=== PATIENT | female | born 1965 | race African-American/Black ===

== ENCOUNTER 2016-07-11 15:10 | Observation (INO) | payer BC, OTHER ==
[2016-07-11] MEDS ORDERED: ASPIRIN 81 MG CHEW PO STA (15:21)
--- NOTE | 2016-07-11 15:25 | ED ---
General Adult HPI - General Chief complaint: Shortness of Breath Stated complaint: SOB Time Seen by Provider: 07/11/16 15:16 Source: patient, RN notes reviewed Mode of arrival: ambulatory Limitations: no limitations - History of Present Illness Initial comments: Patient 50-year-old female significant past medical history for hyperlipidemia, who presents emergency room today with chief complaint of increased shortness of breath. Patient does admit that symptoms started 4 days ago. She states that she thought was for acid reflux that she has had some burning sensation in her chest. She states that she tried Prilosec with no relief the symptoms. She does admit that symptoms are worse when she is up moving around. She states she feels that she has taken extra deep breath. Patient states relatively comfortable sitting down. Patient denies any other complaints or associated symptoms. Patient denies any recent fever, chills, back pain, abdominal pain, nausea or vomiting, numbness or tingling, dysuria or hematuria, constipation or diarrhea, headaches or visual changes, or any other complaints. - Related Data Home Medications Medication Instructions Recorded Confirmed Ibuprofen [Motrin] 800 mg PO Q8HR PRN 10/24/13 07/11/16 Rosuvastatin Calcium [Crestor] 10 mg PO DAILY 10/24/13 07/11/16 Allergies Allergy/AdvReac Type Severity Reaction Status Date / Time tramadol Allergy Itching Verified 07/11/16 15:25 Review of Systems ROS Statement: Those systems with pertinent positive or pertinent negative responses have been documented in the HPI. ROS Other: All systems not noted in ROS Statement are negative. Past Medical History Past Medical History: GERD/Reflux, Hyperlipidemia Additional Past Medical History / Comment(s): knee pain History of Any Multi-Drug Resistant Organisms: None Reported Past Surgical History: Orthopedic Surgery, Tubal Ligation Past Psychological History: No Psychological Hx Reported Smoking Status: Former smoker Past Alcohol Use History: Occasional Past Drug Use History: None Reported General Exam - General Exam Comments Initial Comments: General: The patient is awake and alert, in no distress, and does not appear acutely ill. Eye: Pupils are equal, round and reactive to light, extra-ocular movements are intact. No nystagmus. There is normal conjunctiva bilaterally. No signs of icterus. Ears, nose, mouth and throat: There are moist mucous membranes and no oral lesions. Neck: The neck is supple, there is no tenderness or JVD. Cardiovascular: There is a regular rate and rhythm. No murmur, rub or gallop is appreciated. Respiratory: Lungs are clear to auscultation, respirations are non-labored, breath sounds are equal. No wheezes, stridor, rales, or rhonchi. Gastrointestinal: Soft, non-distended, non-tender abdomen without masses or organomegaly noted. There is no rebound or guarding present. No CVA tenderness. Bowel sounds are unremarkable. Musculoskeletal: Normal ROM, no tenderness. Strength 5/5. Sensation intact. Pulses equal bilaterally 2+. Neurological: A&O x 3. CN II-XII intact, There are no obvious motor or sensory deficits. Coordination appears grossly intact. Speech is normal. Skin: Skin is warm and dry and no rashes or lesions are noted. Psychiatric: Cooperative, appropriate mood & affect, normal judgment. Limitations: no limitations Course Vital Signs 07/11/16 07/11/16 07/11/16 15:11 15:20 16:45 Temperature 98.6 F Pulse Rate 90 84 Respiratory 20 20 20 Rate Blood Pressure 145/86 139/75 O2 Sat by Pulse 98 98 Oximetry EKG Findings - EKG Comments: EKG Findings:: EKG performed at 1537: A 12-lead EKG was performed and interpreted by me as showing the following: Rate is 84, and rhythm is normal sinus. There are normal QRS complexes and normal R-wave progression. ST segments have no elevation or depression, and VA segments appear normal. Medical Decision Making - Medical Decision Making Patient reexamined at this time shows no signs of distress. Patient's labs been reviewed and are unremarkable. Patient's EKG shows normal sinus rhythm. Patient was given sublingual nitroglycerin which she states did improve her symptoms. She states any type of burning type chest pain has resolved. She no longer feeling short of breath. Patient will be admitted for serial enzymes. - Lab Data Result diagrams: 07/11/16 15:35 07/11/16 15:35 Lab Results 07/11/16 07/11/16 07/11/16 Range/Units 15:35 15:35 15:35 WBC 7.1 (3.8-10.6) k/uL RBC 4.66 (3.80-5.40) m/uL Hgb 13.0 (11.4-16.0) gm/dL Hct 41.0 (34.0-46.0) % MCV 87.9 (80.0-100.0) fL MCH 27.9 (25.0-35.0) pg MCHC 31.8 (31.0-37.0) g/dL RDW 13.7 (11.5-15.5) % Plt Count 337 (150-450) k/uL Neutrophils % 61 % Lymphocytes % 31 % Monocytes % 3 % Eosinophils % 2 % Basophils % 1 % Neutrophils # 4.3 (1.3-7.7) k/uL Lymphocytes # 2.2 (1.0-4.8) k/uL Monocytes # 0.2 (0-1.0) k/uL Eosinophils # 0.2 (0-0.7) k/uL Basophils # 0.1 (0-0.2) k/uL PT (9.0-12.0) sec INR (<1.1) APTT (22.0-30.0) sec D-Dimer (<0.60) mg/L FEU Sodium 142 (137-145) mmol/L Potassium 4.2 (3.5-5.1) mmol/L Chloride 107 (98-107) mmol/L Carbon Dioxide 26 (22-30) mmol/L Anion Gap 9 mmol/L BUN 17 (7-17) mg/dL Creatinine 0.65 (0.52-1.04) mg/dL Est GFR (MDRD) Af Amer >60 (>60 ml/min/1.73 sqM) Est GFR (MDRD) Non-Af >60 (>60 ml/min/1.73 sqM) Glucose 116 H (74-99) mg/dL Calcium 9.4 (8.4-10.2) mg/dL Magnesium 2.2 (1.6-2.3) mg/dL Total Bilirubin 0.5 (0.2-1.3) mg/dL AST 35 (14-36) U/L ALT 25 (9-52) U/L Alkaline Phosphatase 149 H (38-126) U/L Total Creatine Kinase 96 (30-135) U/L CK-MB (CK-2) 0.9 (0.0-2.4) ng/mL CK-MB (CK-2) Rel Index 0.9 Troponin I <0.012 (0.000-0.034) ng/mL Total Protein 8.2 (6.3-8.2) g/dL Albumin 4.2 (3.5-5.0) g/dL 07/11/16 Range/Units 15:35 WBC (3.8-10.6) k/uL RBC (3.80-5.40) m/uL Hgb (11.4-16.0) gm/dL Hct (34.0-46.0) % MCV (80.0-100.0) fL MCH (25.0-35.0) pg MCHC (31.0-37.0) g/dL RDW (11.5-15.5) % Plt Count (150-450) k/uL Neutrophils % % Lymphocytes % % Monocytes % % Eosinophils % % Basophils % % Neutrophils # (1.3-7.7) k/uL Lymphocytes # (1.0-4.8) k/uL Monocytes # (0-1.0) k/uL Eosinophils # (0-0.7) k/uL Basophils # (0-0.2) k/uL PT 10.4 (9.0-12.0) sec INR 1.0 (<1.1) APTT 27.8 (22.0-30.0) sec D-Dimer 0.25 (<0.60) mg/L FEU Sodium (137-145) mmol/L Potassium (3.5-5.1) mmol/L Chloride (98-107) mmol/L Carbon Dioxide (22-30) mmol/L Anion Gap mmol/L BUN (7-17) mg/dL Creatinine (0.52-1.04) mg/dL Est GFR (MDRD) Af Amer (>60 ml/min/1.73 sqM) Est GFR (MDRD) Non-Af (>60 ml/min/1.73 sqM) Glucose (74-99) mg/dL Calcium (8.4-10.2) mg/dL Magnesium (1.6-2.3) mg/dL Total Bilirubin (0.2-1.3) mg/dL AST (14-36) U/L ALT (9-52) U/L Alkaline Phosphatase (38-126) U/L Total Creatine Kinase (30-135) U/L CK-MB (CK-2) (0.0-2.4) ng/mL CK-MB (CK-2) Rel Index Troponin I (0.000-0.034) ng/mL Total Protein (6.3-8.2) g/dL Albumin (3.5-5.0) g/dL Disposition Clinical Impression: Atypical chest pain Disposition: ADMITTED IP TO THIS [facility] Condition: Stable Time of Disposition: 17:10
[2016-07-11 15:47] LABS: Basophils # (A) 0.1 k/uL (0-0.2); Basophils % (A) 1 %; Eosinophils # (A) 0.2 k/uL (0-0.7); Eosinophils % (A) 2 %; HDW 2.43; Luc # (Auto) 0.12; Luc % (Auto) 2; Lymphocytes # (A) 2.2 k/uL (1.0-4.8); Lymphocytes % (A) 31 %; MCH 27.9 pg (25.0-35.0); MCHC 31.8 g/dL (31.0-37.0); MCV 87.9 fL (80.0-100.0); Mean Platelet Volume 6.4; Monocytes # (A) 0.2 k/uL (0-1.0); Monocytes % (A) 3 %; Neutrophils # (A) 4.3 k/uL (1.3-7.7); Neutrophils % (A) 61 %; RBC 4.66 m/uL (3.80-5.40); RDW 13.7 % (11.5-15.5); WBC 7.1 k/uL (3.8-10.6); WBC (Perox) 6.81
--- NOTE | 2016-07-11 16:02 | XR ---
EXAMINATION TYPE: XR chest 2V DATE OF EXAM: 07/11/2016 3:48 PM COMPARISON: 02/13/2012 images without report. HISTORY: Chest pain and shortness of breath. TECHNIQUE: Frontal and lateral views of the chest are obtained. FINDINGS: There is no focal air space opacity, pleural effusion, or pneumothorax seen. The cardiac silhouette size is within normal limits. The osseous structures are intact. IMPRESSION: No acute cardiopulmonary process.
[2016-07-11 16:05] LABS: ALT 25 U/L (9-52); AST 35 U/L (14-36); Alkaline Phosphatase 149 U/L (38-126); Anion Gap 9 mmol/L; Blood Urea Nitrogen 17 mg/dL (7-17); Calcium 9.4 mg/dL (8.4-10.2); Carbon Dioxide 26 mmol/L (22-30); Chloride 107 mmol/L (98-107); Glucose 116 mg/dL (74-99); Magnesium 2.2 mg/dL (1.6-2.3); Non-African American GFR(MDRD) >60 (>60 ml/min/1.73 sqM); Sodium 142 mmol/L (137-145); Total Bilirubin 0.5 mg/dL (0.2-1.3); Total Protein 8.2 g/dL (6.3-8.2)
[2016-07-11 16:08] LABS: Creatine Kinase 96 U/L (30-135)
[2016-07-11 16:10] LABS: Potassium 4.2 mmol/L (3.5-5.1)
[2016-07-11 16:21] LABS: Creatine Kinase MB 0.9 ng/mL (0.0-2.4); Troponin I <0.012 ng/mL (0.000-0.034)
[2016-07-11] MEDS ORDERED: NITROGLYCERIN SL TABS 0.4 MG TAB SUBLINGUAL STA (16:27)
[2016-07-11 16:30] LABS: Partial Thromboplastin Time 27.8 sec (22.0-30.0); Prothrombin Time 10.4 sec (9.0-12.0)
[2016-07-11] MEDS ORDERED: NITROGLYCERIN SL TABS 0.4 MG TAB SUBLINGUAL PRN (17:10)
[2016-07-11] MEDS ORDERED: SODIUM CHLORIDE 0.9% 1,000 ML IV ONE (17:10)
[2016-07-11] MEDS ORDERED: HEPARIN SODIUM,PORCINE 5,000 UNIT/ML 1 ML VIAL IV ONE (17:10)
[2016-07-11] MEDS ORDERED: HEPARIN SODIUM,PORCINE/D5W PMX 25,000 UNIT in DEXTROSE/WATER 1 500ML.BAG IV SCH (17:15)
[2016-07-11] MEDS ORDERED: TEMAZEPAM 15 MG CAP PO PRN (18:47)
[2016-07-11] MEDS ORDERED: ALPRAZolam 0.25 MG TAB PO PRN (18:47)
[2016-07-11] MEDS ORDERED: RX INFO: IV CONTRAST WAS GIVEN 1 EACH MISC MISCELLANE PRN (18:47)
--- NOTE | 2016-07-11 19:09 | HP ---
DATE OF ADMISSION: 07/11/2016 CHIEF COMPLAINT: Shortness of breath and chest discomfort. This 50-year-old woman with a past medical history of multiple medical problems including GERD, hyperlipidemia, DJD, history of tubal ligation, being followed by Dr. Melednez in the outpatient setting, was not feeling well for the last 4 days. Patient has minimal shortness of breath on exertion. Subsequently, the patient had burning sensation, chest discomfort in the anterior part of the chest. The patient has taken some antacids and Prilosec without any relief and the patient came to [facility] and admitted to the hospital for further evaluation and treatment. The troponins are negative. EKG showed no acute abnormality. Patient admitted to the hospital for further evaluation and treatment. D. dimer also negative. Past medical history: 1. History of gastroesophageal reflux disease. 2. Hyperlipidemia. 3. History of knee pain. 4. Degenerative joint disease. 5. History of tubal ligation. Medications prior to admission include: 1. Crestor 10 mg daily. 2. Motrin 800 mg q8h p.r.n. ALLERGIES: ULTRAM. FAMILY HISTORY: History of blood clots in the family. SOCIAL HISTORY: Previous history of smoking. No history of current smoking. No alcohol intake. REVIEW OF SYSTEMS: ENT: No diminishing hearing. Diminished vision. CARDIOVASCULAR: No angina. Otherwise as mentioned earlier. RESPIRATORY: No cough or hemoptysis. GI: No nausea. : No dysuria. Nervous system: No numbness or weakness. ALLERGY/IMMUNOLOGY: No asthma or hayfever. MUSCULOSKELETAL: As mentioned earlier. HEMATOLOGY/ONCOLOGY: No history of anemia. ENDOCRINE: No history of diabetes or hypothyroidism. CONSTITUTIONAL: As mentioned earlier. DERMATOLOGY: Negative. RHEUMATOLOGY: Negative. PSYCHIATRY: As mentioned earlier. PHYSICAL EXAMINATION: The patient is alert and oriented times three. Pulse 84, blood pressure 120/70, respiratory rate 18, temperature 98 degrees. HEENT: Conjunctivae normal. Oral mucosa moist. NECK: No jugular venous distention. No carotid bruit. No lymph node enlargement. CARDIOVASCULAR: S1, S2 muffled. RESPIRATORY: Breath sounds diminished at the bases. No rhonchi, no crackles. ABDOMEN: Soft, nontender. No mass palpable. Legs: No edema. No swelling. CENTRAL NERVOUS SYSTEM: Higher functions as mentioned earlier. Moves all 4 limbs. No focal deficits. LYMPHATICS: No lymph nodes palpable in the neck, axillae or groin. SKIN: No ulcer, rash or bleeding. Labs at this time shows CBC within normal limits. Otherwise, glucose 116. ASSESSMENT: 1. Shortness of breath and chest pain for evaluation rule out pulmonary embolism. 2. Rule out gastroesophageal reflux disease and coronary artery disease. 3. Increased random blood sugar. 4. Increased alkaline phosphatase. 5. Hyperlipidemia. 6. History of gastroesophageal reflux disease. 7. History of nicotine dependence. RECOMMENDATIONS AND DISCUSSION: In this 50-year-old woman who presented with multiple complex medical issues, we will monitor the patient closely. Continue the current medications. Continue symptomatic treatment. I would also recommend CT angio to rule out pulmonary embolism. Otherwise see orders for further details. Dr. Melendez will follow. Overall prognosis guarded. The patient appears to be stable at this time. MTDD
[2016-07-11 19:44] VITALS: RESP 16
--- NOTE | 2016-07-11 20:37 | CT ---
EXAMINATION TYPE: CT angio chest DATE OF EXAM: 07/11/2016 8:19 PM COMPARISON: NONE HISTORY: Pt states of SOB and abnormal EKG. CT DLP: 329.4 mGycm Automated exposure control for dose reduction was used. CONTRAST: CTA scan of the thorax is performed with IV Contrast, patient injected with 90 mL of Omnipaque 350, p ulmonary embolism protocol. MIP images are created and reviewed. 3D reconstructed images are create d on an independent workstation and reviewed. FINDINGS: LUNGS: The lungs are remarkable for some minimal dependent atelectatic change, there is no concerning parenchymal mass or nodule identified. There is no pleural effusion or pneumothorax seen. The tra cheobronchial tree is patent. AORTA: No additional significant abnormality is seen. The heart is enlarged. MEDIASTINUM: There is borderline enhancement of the pulmonary artery and its branches, there is no CT evidence for pulmonary embolism. There are no greater than 1 cm hilar or mediastinal lymph nodes. No pericardial effusion is seen. OTHER: No additional significant abnormality is seen. IMPRESSION: NO PULMONARY EMBOLISM IS EVIDENT, SEGMENTAL BRANCHES WITH SOMEWHAT LIMITED CONTRAST ENHANCEMENT [facility] ER.
[2016-07-11] MEDS: PANTOPRAZOLE 40 MG/10 ML VIAL IVP SCH (21:15)
[2016-07-11] MEDS: ACETAMINOPHEN TAB 325 MG TAB PO PRN (21:40)
[2016-07-11 22:18] LABS: Creatine Kinase 81 U/L (30-135)
[2016-07-11 22:31] LABS: Creatine Kinase MB 0.7 ng/mL (0.0-2.4); Troponin I <0.012 ng/mL (0.000-0.034)
[2016-07-12 04:34] LABS: Basophils % (A) 0 %; CH 27.8; Eosinophils # (A) 0.1 k/uL (0-0.7); Eosinophils % (A) 2 %; HCT 38.9 % (34.0-46.0); HDW 2.54; HGB 12.6 gm/dL (11.4-16.0); Luc # (Auto) 0.14; Luc % (Auto) 2; Lymphocytes # (A) 2.7 k/uL (1.0-4.8); Lymphocytes % (A) 44 %; MCH 28.4 pg (25.0-35.0); MCHC 32.4 g/dL (31.0-37.0); MCV 87.6 fL (80.0-100.0); Mean Platelet Volume 7.1; Monocytes # (A) 0.2 k/uL (0-1.0); Monocytes % (A) 4 %; Neutrophils # (A) 2.9 k/uL (1.3-7.7); Neutrophils % (A) 47 %; RBC 4.44 m/uL (3.80-5.40); RDW 13.7 % (11.5-15.5); WBC 6.1 k/uL (3.8-10.6); WBC (Perox) 6.55
[2016-07-12 05:04] LABS: Creatine Kinase 69 U/L (30-135)
[2016-07-12 05:11] LABS: Anion Gap 9 mmol/L; Blood Urea Nitrogen 18 mg/dL (7-17); Carbon Dioxide 22 mmol/L (22-30); Chloride 109 mmol/L (98-107); Cholesterol 182 mg/dL (<200); Glucose 94 mg/dL (74-99); HDL Cholesterol 57 mg/dL (40-60); Non-African American GFR(MDRD) >60 (>60 ml/min/1.73 sqM); Potassium 4.1 mmol/L (3.5-5.1); Sodium 140 mmol/L (137-145); Triglycerides 140 mg/dL (<150)
[2016-07-12 05:16] LABS: Creatine Kinase MB 0.7 ng/mL (0.0-2.4); Troponin I <0.012 ng/mL (0.000-0.034)
--- NOTE | 2016-07-12 08:14 | P.HPIM ---
History of Present Illness H&P Date: 07/12/16 Chief Complaint: chest pressure and shortness of breath. This is a history of physical on a 50-year-old black female, who is a nonsmoker , who has no significant family history other than a grandmother on her mother' s side who had possible myocardial infarction. She does not know her father's medical history. However she is a nonsmoker but stated at work, where she works as a local [employer] employee, she was lifting packages and became noticeably dyspneic area she states this was unusual for her but she was able to "work through it." The symptoms continued over the weekend with exertion only. No supposedly rest pressure or pain. No significant nausea or radiation of any type of chest pressure. She did complain of right hand pain. She is nonsmoker. She denies any significant illicit ethanol or substance abuse. After evaluation, she was up admitted for appropriate evaluation. Review of Systems Constitutional: Denies chills, Denies fever Eyes: denies blurred vision, denies pain Ears, nose, mouth and throat: Denies headache, Denies sore throat Cardiovascular: Reports dyspnea on exertion Respiratory: Denies cough Gastrointestinal: Denies abdominal pain, Denies diarrhea, Denies nausea, Denies vomiting Genitourinary: Denies dysuria, Denies hematuria Musculoskeletal: Denies myalgias Neurological: Denies numbness, Denies weakness Past Medical History Past Medical History: GERD/Reflux, Hyperlipidemia Additional Past Medical History / Comment(s): knee pain History of Any Multi-Drug Resistant Organisms: None Reported Past Surgical History: Orthopedic Surgery, Tubal Ligation Additional Past Surgical History / Comment(s): 2 right knee surgeries. uterine ablation Past Anesthesia/Blood Transfusion Reactions: Previous Problems w/ Anesthesia Additional Past Anesthesia/Blood Transfusion Reaction / Comment(s): "my body tries rejecting the tube. I needed a wedge" Past Psychological History: No Psychological Hx Reported Smoking Status: Former smoker Past Alcohol Use History: Occasional Past Drug Use History: None Reported - Past Family History Father History Unknown: Yes Mother Family Medical History: Dementia, Deep Vein Thrombosis (DVT), Hypertension Brother(s) Family Medical History: COPD, Diabetes Mellitus, Hypertension Sister(s) Family Medical History: No Reported History Medications and Allergies Home Medications Medication Instructions Recorded Confirmed Type Ibuprofen [Motrin] 800 mg PO Q8HR PRN 08/06/14 04/23/17 History Rosuvastatin Calcium [Crestor] 10 mg PO DAILY 10/24/13 07/11/16 History Allergies Allergy/AdvReac Type Severity Reaction Status Date / Time tramadol Allergy Itching Verified 07/11/16 15:25 Physical Exam Vitals: Vital Signs Temp Pulse Pulse Resp BP BP Pulse Ox 07/12/16 04:00 97 F L 70 16 119/71 95 07/12/16 00:00 97 F L 75 16 122/60 96 07/11/16 19:34 98.6 F 73 16 134/82 98 07/11/16 17:59 98.2 F 07/11/16 17:44 84 18 128/78 98 Intake and Output 07/11/16 07/12/16 07/12/16 22:59 06:59 14:59 Intake Total 200 264 120 Balance 200 264 120 Intake: IV 120 120 Sodium Chloride 0.9% 1, 120 120 000 ml @ 20 mls/hr IV . Q24H [facility] Rx#:[id number] Intake, IV Titration 144 Amount Heparin Sodium,Porcine/ 144 D5w Pmx 25,000 unit In Dextrose/Water 1 500ml. bag @ 11.604 UNITS/KG/HR 20 mls/hr IV .Q24H [facility] Rx #:[id number] Oral 200 Other: Voiding Method Toilet Toilet # Voids 1 Weight 84.2 kg - Constitutional General appearance: no acute distress - EENT Eyes: EOMI - Neck Neck: no lymphadenopathy - Respiratory Respiratory: bilateral: CTA - Cardiovascular Rhythm: regular Heart sounds: normal: S1, S2 - Gastrointestinal General gastrointestinal: soft, no tenderness, no umbilical hernia - Neurologic Neurologic: CNII-XII intact Results CBC & Chem 7: 07/12/16 03:46 07/12/16 03:46 Labs: Abnormal Lab Results - Last 24 Hours (Table) 07/11/16 07/12/16 Range/Units 22:59 03:46 APTT 104.9 H* (22.0-30.0) sec Chloride 109 H (98-107) mmol/L BUN 18 H (7-17) mg/dL Thrombosis Risk Factor Assmnt - Choose All That Apply Any of the Below Risk Factors Present?: Yes Each Factor Represents 1 point: Age 41-60 years Each Risk Factor Represents 3 Points: Family history of DVT/PE Thrombosis Risk Factor Assessment Total Risk Factor Score: 4 Thrombosis Risk Factor Assessment Level: Moderate Risk Assessment and Plan (1) Lipidemia Status: Acute (2) Atypical chest pain Status: Acute Plan: go ahead and rule out myocardial infarction. Given her symptom otology and no previous cardiac history, we'll most likely stress testing will be done today. Otherwise, await cardiology input. Reconcile home medications. We'll continue to follow. I discussed the patient, she is agreeable to treatment. She is a full code otherwise. Time with Patient: Less than 30
[2016-07-12] MEDS: PANTOPRAZOLE 40 MG/10 ML VIAL IVP SCH (08:18)
[2016-07-12] MEDS: ACETAMINOPHEN TAB 325 MG TAB PO PRN ×2 (08:21→17:07)
[2016-07-12 08:28] VITALS: PULSE 76
[2016-07-12] MEDS ORDERED: ATORVASTATIN 20 MG TAB PO SCH (09:00)
[2016-07-12] MEDS ORDERED: ASPIRIN 325 MG TAB PO SCH (09:00)
--- NOTE | 2016-07-12 09:11 | P.CRDCN ---
History of Present Illness Consult date: 07/12/16 Requesting physician: Dann Melendez Consult reason: chest pain Chief complaint: Exertional shortness of breath History of present illness: This is a pleasant 50-year-old -Wallis[place] female with history of hyperlipidemia, family history of premature coronary artery disease, who presents to the hospital with symptoms of exertional dyspnea. According to the patient for the past week or so she has noticed that she becomes short of breath with minimal exertion. Patient states she works as a [employer] employee, and even lifting small boxes she becomes quite short of breath. She denies any chest pains. She states that yesterday she went shopping with her , just walking through the store became quite short of breath, for this reason she came to the emergency room for further evaluation. Chest x-ray on admission did not reveal any acute cardiopulmonary process. EKG showed normal sinus rhythm with inferior ST-T wave changes. Repeat EKG shows normal sinus rhythm with inferior T-wave inversion. The chest was performed which did not reveal any evidence of a pulmonary embolism. CBC normal. D-dimer negative. Potassium 4.1, creatinine 0.6. Troponins negative 3. At pressure 134/80 with a heart rate in 70's. At the time of my examination this morning, patient denies any shortness of breath, no chest discomfort. Past Medical History Past Medical History: GERD/Reflux, Hyperlipidemia Additional Past Medical History / Comment(s): knee pain History of Any Multi-Drug Resistant Organisms: None Reported Past Surgical History: Orthopedic Surgery, Tubal Ligation Additional Past Surgical History / Comment(s): 2 right knee surgeries. uterine ablation Past Anesthesia/Blood Transfusion Reactions: Previous Problems w/ Anesthesia Additional Past Anesthesia/Blood Transfusion Reaction / Comment(s): "my body tries rejecting the tube. I needed a wedge" Past Psychological History: No Psychological Hx Reported Smoking Status: Former smoker Past Alcohol Use History: Occasional Past Drug Use History: None Reported - Past Family History Father History Unknown: Yes Mother Family Medical History: Dementia, Deep Vein Thrombosis (DVT), Hypertension Brother(s) Family Medical History: COPD, Diabetes Mellitus, Hypertension Sister(s) Family Medical History: No Reported History Medications and Allergies Home Medications Medication Instructions Recorded Confirmed Type Ibuprofen [Motrin] 800 mg PO Q8HR PRN 08/06/14 04/23/17 History Rosuvastatin Calcium [Crestor] 10 mg PO DAILY 10/24/13 07/11/16 History Allergies Allergy/AdvReac Type Severity Reaction Status Date / Time tramadol Allergy Itching Verified 07/11/16 15:25 Physical Exam Vitals: Vital Signs Temp Pulse Pulse Resp BP BP Pulse Ox 07/12/16 08:26 97.7 F 76 16 134/80 97 07/12/16 04:00 97 F L 70 16 119/71 95 07/12/16 00:00 97 F L 75 16 122/60 96 07/11/16 19:34 98.6 F 73 16 134/82 98 07/11/16 17:59 98.2 F 07/11/16 17:44 84 18 128/78 98 Intake and Output 07/11/16 07/12/16 07/12/16 22:59 06:59 14:59 Intake Total 200 264 120 Balance 200 264 120 Intake: IV 120 120 Sodium Chloride 0.9% 1, 120 120 000 ml @ 20 mls/hr IV . Q24H ONE Rx#:[id number] Intake, IV Titration 144 Amount Heparin Sodium,Porcine/ 144 D5w Pmx 25,000 unit In Dextrose/Water 1 500ml. bag @ 11.604 UNITS/KG/HR 20 mls/hr IV .Q24H [facility] Rx #:[id number] Oral 200 Other: Voiding Method Toilet Toilet Toilet # Voids 1 Weight 84.2 kg PHYSICAL EXAMINATION: HEENT: Head is atraumatic, normocephalic. Pupils equal, round. Neck is supple. There is no elevated jugular venous pressure. Right carotid bruit is heard HEART EXAMINATION: Heart S1, S2 normal. No murmur or gallop heard. CHEST EXAMINATION: Lungs are clear to auscultation and precussion. No chest wall tenderness is noted on palpation or with deep breathing. ABDOMEN: Soft, nontender. Bowel sounds are heard. No organomegaly noted. EXTREMITIES: 2+ peripheral pulses with no evidence of peripheral edema and no calf tenderness noted. NEUROLOGIC patient is awake, alert and oriented -3. . Results 07/12/16 03:46 07/12/16 03:46 Cardiac Enzymes 07/11/16 07/12/16 Range/Units 21:11 03:46 CK-MB (CK-2) 0.7 0.7 (0.0-2.4) ng/mL Troponin I <0.012 <0.012 (0.000-0.034) ng/mL Coagulation 07/11/16 Range/Units 22:59 APTT 104.9 H* (22.0-30.0) sec Lipids 07/12/16 Range/Units 03:46 Triglycerides 140 (<150) mg/dL Cholesterol 182 (<200) mg/dL HDL Cholesterol 57 (40-60) mg/dL CBC 07/12/16 Range/Units 03:46 WBC 6.1 (3.8-10.6) k/uL RBC 4.44 (3.80-5.40) m/uL Hgb 12.6 (11.4-16.0) gm/dL Hct 38.9 (34.0-46.0) % Plt Count 317 (150-450) k/uL Comprehensive Metabolic Panel 07/12/16 Range/Units 03:46 Sodium 140 (137-145) mmol/L Potassium 4.1 (3.5-5.1) mmol/L Chloride 109 H (98-107) mmol/L Carbon Dioxide 22 (22-30) mmol/L BUN 18 H (7-17) mg/dL Creatinine 0.60 (0.52-1.04) mg/dL Glucose 94 (74-99) mg/dL Calcium 9.0 (8.4-10.2) mg/dL Current Medications Generic Name Dose Route Start Last Admin Trade Name Freq PRN Reason Stop Dose Admin Acetaminophen 650 mg 07/11/16 21:20 07/12/16 08:21 Tylenol Tab PO 650 mg Q4HR PRN Administration Fever and/ or Pain Alprazolam 0.25 mg 07/11/16 18:47 Xanax PO TID PRN Anxiety Aspirin 325 mg 07/12/16 09:00 Aspirin PO DAILY [facility] Atorvastatin Calcium 20 mg 07/12/16 09:00 Lipitor PO DAILY [facility] Heparin Sodium/Dextrose 25,000 500 mls @ 20 mls/hr 07/11/16 17:15 07/12/16 01 :45 unit/ IV Solution IV 8.604 units/kg/hr .Q24H [facility] 14.83 mls/hr Protocol Titration 11.604 UNITS/KG/HR Sodium Chloride 1,000 mls @ 20 mls/hr 07/11/16 17:10 07/11/16 17:30 Saline 0.9% IV 07/12/16 17:09 20 mls/hr .Q24H ONE Administration Miscellaneous Information 1 each 07/11/16 18:47 Rx Info: Iv Contrast Was Given MISCELLANE 07/13/16 18:47 DAILY PRN Per Protocol Nitroglycerin 0.4 mg 07/11/16 17:10 Nitrostat SUBLINGUAL Q5M PRN Chest Pain Pantoprazole Sodium 40 mg 07/11/16 21:00 07/12/16 08:18 Protonix IVP 40 mg BID SHRUTHI Administration Temazepam 15 mg 07/11/16 18:47 Restoril PO HS PRN Insomnia Intake and Output 07/11/16 07/12/16 07/12/16 22:59 06:59 14:59 Intake Total 200 264 120 Balance 200 264 120 Intake: IV 120 120 Sodium Chloride 0.9% 1, 120 120 000 ml @ 20 mls/hr IV . Q24H [facility] Rx#:[id number] Intake, IV Titration 144 Amount Heparin Sodium,Porcine/ 144 D5w Pmx 25,000 unit In Dextrose/Water 1 500ml. bag @ 11.604 UNITS/KG/HR 20 mls/hr IV .Q24H [facility] Rx #:[id number] Oral 200 Other: Voiding Method Toilet Toilet Toilet # Voids 1 Weight 84.2 kg 07/12/16 03:46 07/12/16 03:46 EKG Interpretations (text) EKG shows normal sinus rhythm with nonspecific ST-T wave changes in the lateral leads. Assessment and Plan Plan: Assessment and plan #1 symptoms of exertional dyspnea, troponins negative 3. EKG shows normal sinus rhythm with nonspecific ST-T wave changes in the lateral leads. ET of the chest negative for pulmonary embolism. #2 hyperlipidemia #3 family history of premature coronary artery disease Plan We will obtain an echocardiogram with Doppler study.Patient has been advised to undergo stress testing for more definitive diagnosis. Further recommendations will be based on these findings and the patient's clinical course. DNP note has been reviewed, I agree with a documented findings and plan of care. Patient was seen and examined.
[2016-07-12] MEDS ORDERED: AMINOPHYLLINE 500 MG/20 ML VIAL IV PRN (10:30)
[2016-07-12] MEDS ORDERED: REGADENOSON 0.4 MG/5 ML SYRINGE IV ONE (10:30)
[2016-07-12] MEDS ORDERED: ONDANSETRON 4 MG/2 ML VIAL ONE (11:57)
--- NOTE | 2016-07-12 12:08 | ECHOF ---
Referral Reason:sob MEASUREMENTS -------- HEIGHT: 165.1 cm WEIGHT: 83.9 kg BP: 134/80 RVIDd: 2.3 cm (< 3.3) IVSd: 1.0 cm (0.6 - 1.1) LVIDd: 3.8 cm (3.9 - 5.3) LVPWd: 0.9 cm (0.6 - 1.1) IVSs: 1.3 cm LVIDs: 2.8 cm LVPWs: 1.4 cm LA Diam: 2.6 cm (2.7 - 3.8) LAESV Index (A-L): 25.28 ml/m Ao Diam: 2.7 cm (2.0 - 3.7) AV Cusp: 1.9 cm (1.5 - 2.6) LA Diam: 2.5 cm (2.7 - 3.8) MV EXCURSION: 12.451 mm (> 18.000) MV EF SLOPE: 93 mm/s (70 - 150) EPSS: 0.5 cm MV E Milton: 0.68 m/s MV DecT: 258 ms MV A Milton: 0.68 m/s MV E/A Ratio: 1.00 RAP: 5.00 mmHg RVSP: 18.51 mmHg FINDINGS -------- Sinus rhythm. This was a technically good study. Left ventricular wall thickness is normal. Overall left ventricular systolic function is normal with, an EF between 55 - 60 %. The right ventricle is normal in size. Normal LA size by volume 22+/-6 ml/m2. The right atrium is normal in size. Aortic valve is trileaflet and is mildly thickened. The mitral valve leaflets are mildly thickened. Mild mitral annular calcification present. Mild mitral regurgitation is present. Mild tricuspid regurgitation present. Right ventricular systolic pressure is normal at < 35 mmHg. Trace/mild (physiologic) pulmonic regurgitation. The aortic root size is normal. Normal inferior vena cava with normal inspiratory collapse consistent with estimated right atrial pressure of 5 mmHg. There is no pericardial effusion. CONCLUSIONS -------- 1. Sinus rhythm. 2. Mild mitral annular calcification present. 3. Mild mitral regurgitation is present. 4. Mild tricuspid regurgitation present. 5. Right ventricular systolic pressure is normal at < 35 mmHg. 6. Trace/mild (physiologic) pulmonic regurgitation. 7. The aortic root size is normal. 8. Normal inferior vena cava with normal inspiratory collapse consistent with estimated right atrial pressure of 5 mmHg. 9. There is no pericardial effusion. 10. This was a technically good study. 11. Left ventricular wall thickness is normal. 12. Overall left ventricular systolic function is normal with, an EF between 55 - 60 %. 13. The right ventricle is normal in size. 14. Normal LA size by volume 22+/-6 ml/m2. 15. The right atrium is normal in size. 16. Aortic valve is trileaflet and is mildly thickened. 17. The mitral valve leaflets are mildly thickened. [employer]AL[employer] ASSURANCE SUPERVISOR TRIM: Marlin Rodgers RDCS
--- NOTE | 2016-07-12 12:26 | EST ---
DATE OF SERVICE: 07/12/2016 AGE: 50Y SEX: F HT: 65" WT: 185 lbs. Protocol Brian: Other: Stage: Dur. of Exercise: *Heart Rate Blood Pressure *Rest: 66 Rest: 123/92 * *Max. Achieved: 115 Maximum BP: 153/94 85% PMHR: 143 100% PMHR: 165 *METS: INDICATIONS: Chest pain. MEDICATIONS: See list. This is a 50-year-old female. Clinical information: History of shortness of breath, chest pain, family history of coronary artery disease, hypercholesterolemia, history of smoking 1 pack of cigarettes a day, quit 25 years ago. Resting ECG shows sinus rhythm, rate of 66 beats per minute, ( ) 0.16, QRS of 0.08, normal ST-T waves. Utilizing a standard Lexiscan protocol, Lexiscan was given IV push followed by serial EKGs without any chest pain or pressure. Patient had nausea and required Zofran with improvement of nausea. Patient did not have any ST segment deviations or symptoms suggestive of angina. IMPRESSION: 1. Baseline rhythm is sinus with normal QRS and normal ST-T waves. 2. Negative Lexiscan Cardiolite study. 3. Nuclear scintigrams to follow from radiology department.
--- NOTE | 2016-07-12 15:19 | NM ---
EXAMINATION TYPE: NM stress lexiscan cardiolite DATE OF EXAM: 07/12/2016 12:48 PM COMPARISON: NONE HISTORY: TECHNIQUE: After the intravenous administration of 10.4 mCi Tc 99m Sestamibi - Cardiolite resting SP ECT images acquired 45 minutes post injection. The patient received 0.4mg Lexiscan, 26.3 mCi Tc 99m Sestamibi - Stress images obtained [address] injection FINDINGS: Review of stress and rest SPECT images demonstrates predominantly fixed defect involving the apex monica cardium. No definite stress-induced reversibility identified.. Gated analysis shows normal wall oscar on with an estimated left ventricular ejection fraction of 53 %. IMPRESSION: No scintigraphic evidence for reversible ischemia. Correlate for fixed defect apex myocardium and pre vious infarction. Ejection fraction 53%.
[2016-07-12 15:24] VITALS: BP 146/66; TEMP 97.6
--- NOTE | 2016-08-25 10:37 | P.DS ---
Providers Date of admission: 07/11/16 17:28 Attending physician: Dann Melendez Consults: 07/11/16 17:10 Consult Physician Stat Consulting Provider: [facility] Consult Reason/Comments: Chest pain Do you want consulting provider notified?: Yes Primary care physician: Dann Melendez - Discharge Diagnosis(es) (1) Lipidemia Status: Acute (2) Atypical chest pain Status: Acute Hospital Course: This is a discharge summary on a 51-year-old black female essentially admitted for chest pain. She has significant shortness of breath and symptomatology for angina. The patient was admitted and appropriately evaluated with significant stress testing. The patient was discharged after normality of this test. The patient was stable condition with some mild cough. But she is tolerant diet and ambulate without difficulty and will follow-up with me in approximately 3 days. Patient Condition at Discharge: Stable Plan - Discharge Summary New Discharge Prescriptions: No Action Rosuvastatin Calcium [Crestor] 10 mg PO DAILY Ibuprofen [Motrin] 800 mg PO Q8HR PRN PRN Reason: Pain Discharge Medication List Ibuprofen [Motrin] 800 mg PO Q8HR PRN 10/24/13 [History] Rosuvastatin Calcium [Crestor] 10 mg PO DAILY 10/24/13 [History] Follow up Appointment(s)/Referral(s): Dann Melendez MD [Primary Care Provider] - 07/19/16 2:00 pm Austen Vera MD [STAFF PHYSICIAN] - 1 Week (office will call with appt) Patient Instructions/Handouts: Chest Pain (DC) Discharge Disposition: HOME SELF-CARE
== END 2016-07-12 17:54 | disposition home or self-care (01) ==
LOC: EC 15:10 → 6SEL 17:28
PROVIDERS: ADMIT Family Medicine; ATTEND Family Medicine
DX: R07.89 Other chest pain (principal); K21.9 Gastro-esophageal reflux disease without esophagitis; E78.5 Hyperlipidemia, unspecified; R06.02 Shortness of breath; Z79.899 Other long term (current) drug therapy; Z88.6 Allergy status to analgesic agent; Z87.891 Personal history of nicotine dependence; Z82.49 Family history of ischemic heart disease and other diseases of the circulatory system; Z83.3 Family history of diabetes mellitus; Z82.0 Family history of epilepsy and other diseases of the nervous system
CPT/HCPCS: 99285 ×2; 96365 ×2; 96375 ×2; 96376 ×2; 36415; 93005; 93017; 93306; 85379; 80061; 80053; 80048; 82550 ×2; 82553 ×2; 83735; 84484 ×2; 85025 ×2; 85610; 85730 ×2; 71020; 71275; 78452; G0378 ×2; A9500; J1644 ×2; Q9967; J2785; C9113 ×2; 96366

== ENCOUNTER → 2016-08-25 | Outpatient (CLI) | payer BC, OTHER | END | disposition home or self-care (01) | LOC: CPPFTMAIN 13:22 | PROVIDERS: ATTEND Internal Medicine Cardiovascular Disease | DX: R06.02 Shortness of breath (principal) | CPT/HCPCS: 94060; 94726; 94729 ==

== ENCOUNTER 2017-04-21 10:22 | Day surgery (SDC) | payer BC ==
[2017-04-19 08:50] VITALS: BMI 30.9
[~2017-04-21 10:22] MED LIST: LACTATED RINGERS 1,000 ML IV SCH; LIDOCAINE 1% 20 ML VIAL (10MG/ML) FOR IV START INTRADERMA PRN
[2017-04-21] MEDS ORDERED: PROPOFOL 10 MG/ML 20 ML VIAL IV ONE (11:36)
--- NOTE | 2017-04-21 11:44 | P.PCN ---
Date of Procedure: 04/21/17 Procedure(s) Performed: BRIEF HISTORY: Patient is a 51-year-old, pleasant, after intermittent female, scheduled for an upper endoscopy as a part of evaluation of epigastric pain for the last several weeks duration. She takes NSAIDs on a regular basis. She was recently started on the Dexillant once daily and symptoms and the symptoms are gradually improving.. PROCEDURE PERFORMED: Esophagogastroduodenoscopy with biopsy.. PREOPERATIVE DIAGNOSIS: Epigastric pain. IV sedation per anesthesia. PROCEDURE: After informed consent was obtained, the patient was brought into the endoscopy unit. IV sedation was administered by Anesthesia under continuous monitoring. Initially the Olympus GIF-140 video endoscope was inserted into the mouth. Esophagus intubated without any difficulty. It was gradually advanced into the stomach and duodenum and carefully examined. The bulb and the second part of the duodenum appeared normal. The scope at this time was withdrawn to the stomach, adequately insufflated with air, and upon careful examination, mucosa of the antrum, had multiple scattered erosions consistent with erosive gastritis and biopsies were done from this area. The body, cardia and the fundus appeared normal. The scope was then withdrawn into the esophagus. The GE junction was located at 39 cm from the incisors. The esophagus appeared normal. There were no erosions or ulcerations seen and the patient tolerated the procedure well. IMPRESSION: 1. Antral erosive gastritis. 2. No evidence of esophagitis or peptic ulcer disease. RECOMMENDATIONS: The findings of this examination were discussed with the patient as well as a family. She was advised to follow with the biopsy results. She will continue with dexillant once daily and follow antireflux measures. She was advised to avoid NSAIDs.
[2017-04-21 12:14] VITALS: BP 127/75; PULSE 67; RESP 16
== END 2017-04-21 12:40 | disposition home or self-care (01) ==
LOC: ORWHC2ENDO 10:22
PROVIDERS: ATTEND Internal Medicine Gastroenterology
DX: K29.50 Unspecified chronic gastritis without bleeding (principal); K21.9 Gastro-esophageal reflux disease without esophagitis; E78.5 Hyperlipidemia, unspecified; Z88.5 Allergy status to narcotic agent; Z79.1 Long term (current) use of non-steroidal anti-inflammatories (NSAID); Z79.899 Other long term (current) drug therapy
CPT/HCPCS: 43239; 81025; 88305; 88342

== ENCOUNTER 2017-07-24 14:50 | Emergency (ER) | payer BC ==
[2017-07-24 14:53] VITALS: BP 158/91; PULSE 100; RESP 20; TEMP 99
[2017-07-24] MEDS ORDERED: KETOROLAC 30 MG/ML 1 ML VIAL IM STA (15:15)
--- NOTE | 2017-07-24 15:44 | XR ---
EXAMINATION TYPE: XR lumbar spine 2 or 3V DATE OF EXAM: 07/24/2017 COMPARISON: 01/13/2014 HISTORY: Pain TECHNIQUE: 3 view lumbar spine FINDINGS: There 5 lumbar-type vertebral bodies. The pedicles are intact. Disc heights are preserved. Vertebral body heights are preserved. Alignment is normal. IMPRESSION: 1. Normal three-view lumbar spine.
--- NOTE | 2017-07-24 16:00 | ED ---
General Adult HPI - General Chief complaint: Back Pain/Injury Stated complaint: Back Pain Time Seen by Provider: 07/24/17 14:58 Source: patient, RN notes reviewed Mode of arrival: ambulatory Limitations: no limitations - History of Present Illness Initial comments: 52-year-old female presents to the emergency department for a chief complaint of low back pain 5 days. Patient states she has had similar low back pain in the past. Patient denies any injuries. Patient works for [employer] and [employer] boxes often and may have injured herself doing that but cannot remember an exact time. Patient complaints of pain mostly in the left lower lumbar area. Patient denies any shooting or radiating pains. Patient denies bladder or bowel changes including urinary retention and bowel incontinence. Patient denies any numb or groin area. Patient denies any weakness in her legs or arms. Patient denies any pain in her neck or upper back. Patient states she has been taking Tylenol and cannot take Motrin because she has had stomach problems with it. She denies any kidney diseases. Patient states she has been taking Tylenol which helps somewhat. She does not want any narcotics for pain. Patient denies any other complaints at this time. Patient denies fevers, shortness of breath, chest pain, abdominal pain, nausea or vomiting, headaches, or visual changes. - Related Data Home Medications Medication Instructions Recorded Confirmed Ibuprofen [Motrin] 800 mg PO Q8HR PRN 10/24/13 04/21/17 Rosuvastatin Calcium [Crestor] 10 mg PO DAILY 10/24/13 04/21/17 Buckleys Cough Syrup 1 dose PO DAILY PRN 04/19/17 04/21/17 Dexlansoprazole [Dexilant] 60 mg PO Q2D 04/19/17 04/21/17 Previous Rx's Medication Instructions Recorded Acetaminophen [Tylenol] 500 mg PO Q4-6H PRN #20 tab 07/24/17 Cyclobenzaprine [Flexeril] 5 mg PO TID #12 tablet 07/24/17 predniSONE 50 mg PO DAILY #5 tablet 07/24/17 Allergies Allergy/AdvReac Type Severity Reaction Status Date / Time tramadol Allergy Itching Verified 07/24/17 14:53 Review of Systems ROS Statement: Those systems with pertinent positive or pertinent negative responses have been documented in the HPI. ROS Other: All systems not noted in ROS Statement are negative. Past Medical History Past Medical History: GERD/Reflux, Hyperlipidemia Additional Past Medical History / Comment(s): knee pain History of Any Multi-Drug Resistant Organisms: None Reported Past Surgical History: Orthopedic Surgery, Tubal Ligation Additional Past Surgical History / Comment(s): 2 right knee surgeries. uterine ablation Past Anesthesia/Blood Transfusion Reactions: Previous Problems w/ Anesthesia Additional Past Anesthesia/Blood Transfusion Reaction / Comment(s): "my body tries rejecting the tube. I needed a wedge","takes awhile to come out of anesthesia for one of my surgeries so I ended up staying the night" Past Psychological History: No Psychological Hx Reported Smoking Status: Former smoker Past Alcohol Use History: Occasional Past Drug Use History: None Reported - Past Family History Father History Unknown: Yes Mother Family Medical History: Dementia, Deep Vein Thrombosis (DVT), Hypertension Brother(s) Family Medical History: COPD, Diabetes Mellitus, Hypertension Sister(s) Family Medical History: No Reported History General Exam Limitations: no limitations General appearance: alert, in no apparent distress Head exam: Present: atraumatic, normocephalic, normal inspection Neck exam: Present: normal inspection, full ROM. Absent: tenderness, meningismus, lymphadenopathy Respiratory exam: Present: normal lung sounds bilaterally. Absent: respiratory distress, wheezes, rales, rhonchi, stridor Cardiovascular Exam: Present: regular rate, normal rhythm, normal heart sounds. Absent: bradycardia, tachycardia, irregular rhythm Extremities exam: Present: full ROM (Full range of motion in bilateral lower extremities. Strength 5 out of 5 in bilateral lower extremities. Pedal pulse 2 + in bilateral lower extremities.) Back exam: Absent: full ROM (Patient has 45 of lumbar flexion. Full and bilateral rotation of the), tenderness (No tenderness to palpation along the spine.), paraspinal tenderness (No paraspinal tenderness), vertebral tenderness (No palpation of the cervical thoracic or lumbar spines.) Neurological exam: Present: alert, oriented X3 Course Vital Signs 07/24/17 14:51 Temperature 99.0 F Pulse Rate 100 Respiratory 20 Rate Blood Pressure 158/91 O2 Sat by Pulse 98 Oximetry Medical Decision Making - Medical Decision Making 52-year-old female presents to the emergency department for a chief complaint of low back pain 5 days. No injuries. No red flag symptoms. Patient has been taking Tylenol for pain relief which has helped somewhat. On exam patient has limited flexion but full range of motion otherwise of the lumbar spine. No tenderness through the lumbar thoracic or cervical spines. X-ray of the lumbar spine shows no acute fractures or abnormalities. No lytic or blastic bony change. No spondylolysis or spondylolisthesis. Patient was given Toradol in the emergency department which alleviated her pain. Patient is feeling much better. Patient does not want narcotics. She will be given Tylenol for pain relief as well as a steroid and Flexeril. Patient was educated not to drive while taking Flexeril. She will return to the emergency Department if she has any worsening symptoms including urinary or bowel changes. She will follow up with family doctor in one to 2 days. Disposition Clinical Impression: Mechanical back pain Disposition: HOME SELF-CARE Condition: Good Instructions: Acute Low Back Pain (ED) Prescriptions: Acetaminophen [Tylenol] 500 mg PO Q4-6H PRN #20 tab PRN Reason: Pain Cyclobenzaprine [Flexeril] 5 mg PO TID #12 tablet predniSONE 50 mg PO DAILY #5 tablet Is patient prescribed a controlled substance at d/c from ED?: No Referrals: Dann Melendez MD [Primary Care Provider] - 1-2 days Time of Disposition: 15:49
== END 2017-07-24 16:03 | disposition home or self-care (01) ==
LOC: EC 14:50
DX: M54.5 Low back pain (principal); E78.5 Hyperlipidemia, unspecified; K21.9 Gastro-esophageal reflux disease without esophagitis; Z87.891 Personal history of nicotine dependence; Z79.899 Other long term (current) drug therapy; Z88.6 Allergy status to analgesic agent
CPT/HCPCS: 99283; 96372; 72100; J1885

== ENCOUNTER → 2017-08-10 | Outpatient (CLI) | payer BC ==
--- NOTE | 2017-08-10 15:51 | BD ---
EXAMINATION TYPE: Axial Bone Density DATE OF EXAM: 08/10/2017 COMPARISON: NONE CLINICAL HISTORY: Z78.0 Postmenopausal w/o HR Height: 65 Weight: 193.0 FRAX RISK QUESTIONS: Alcohol (3 or more units per day): no Family History (Parent hip fracture): no Glucocorticoids (More than 3mos): no (Ex: prednisone, prednisolone, methylprednisolone, dexamethasone, and hydrocortisone). History of Fracture in Adulthood: yes Secondary Osteoporosis: 1. Type 1 Diabetes: no 2. Hyperthyroidism: no 3. Menopause before 45: no 4. Malnutrition: no 5. Chronic liver disease: no Rheumatoid Arthritis: no Current Tobacco Use: no RISK FACTORS HISTORY OF: Family History of Osteoporosis: no Active: yes Diet low in dairy products/other sources of calcium: yes Postmenopausal woman: ablation age 44 Lost more than 2 inches in height since high school: no MEDICATIONS: crestor, prilosec Additional History: EXAM MEASUREMENTS: Bone mineral densitometry was performed using the [employer]eb System. Bone mineral density as measured about the Lumbar spine is: ----- L1-L4(G/cm2): 1.107 T Score Values are as follows: ----- L2: -1.0 ----- L3: -0.3 ----- L4: -1.0 ----- L1-L4: -0.6 Bone mineral density has: decreased -8.0 % since study of: 03.02.2011 Bone mineral density about the R hip (g/cm2): 0.984 Bone mineral density about the L hip (g/cm2): 0.942 T Score values are as follows: -----R Neck: -0.4 -----L Neck: -0.7 -----R Total: 0.2 -----L Total: 0.0 Bone mineral density has: decreased -3.7 % since study of: 03.02.2011 IMPRESSION: No evidence for osteoporosis or osteopenia. NOTE: T-SCORE=SD OF THE YOUNG ADULT MEAN.
--- NOTE | 2017-08-11 09:36 | MM ---
Reason for exam: screening (asymptomatic). Last mammogram was performed 6 years and 5 months ago. History: Family history of premenopausal breast cancer in 2 aunts at age 40. Cancelled Left US Needle Biopsy of the left breast, January 18, 2007. Physical Findings: A clinical breast exam by your physician is recommended on an annual basis and results should be correlated with mammographic findings. MG Screening Mammo w CAD Bilateral CC and MLO view(s) were taken. Prior study comparison: March 02, 2011, bilateral digital screening mammo w/CAD. December 31, 2009, bilateral diagnostic digital mammog. There are scattered fibroglandular densities. No suspicious abnormality. No significant changes when compared with prior studies. ASSESSMENT: Negative, BI-RAD 1 RECOMMENDATION: Routine screening mammogram of both breasts in 1 year.
== END | disposition home or self-care (01) ==
LOC: RADMAMWWP 14:33
PROVIDERS: ATTEND Family Medicine
DX: Z12.31 Encounter for screening mammogram for malignant neoplasm of breast (principal); Z78.0 Asymptomatic menopausal state
CPT/HCPCS: 77067; 77080

== ENCOUNTER → 2018-03-31 | Outpatient (CLI) | payer BC ==
--- NOTE | 2018-03-31 10:59 | XR ---
Lumbar spine HISTORY: Sciatic pain, low back pain 3 views of the lumbar spine correlated to prior exam 07/24/2017 Lumbar vertebral bodies show preserved height, alignment, and bone mineralization. Loss of disc heigh t again noted L4-5, L5-S1. Sclerosis present in the posterior elements of the lower lumbar spine. Mil d multilevel spondylosis. IMPRESSION: Degenerative disc disease.
== END | disposition home or self-care (01) ==
LOC: RADXRMAIN 09:31
PROVIDERS: ATTEND Family Medicine
DX: M51.36 Other intervertebral disc degeneration, lumbar region (principal)
CPT/HCPCS: 72100

== ENCOUNTER 2018-08-03 15:45 | Emergency (ER) | payer BC ==
[2018-08-03 16:05] VITALS: BP 145/85; PULSE 72; RESP 18; TEMP 98.2
--- NOTE | 2018-08-03 17:17 | ED ---
General Adult HPI - General Chief complaint: Extremity Injury, Lower Stated complaint: left knee pain Time Seen by Provider: 08/03/18 16:19 Source: patient Mode of arrival: ambulatory Limitations: no limitations - History of Present Illness Initial comments: Patient is a 53-year-old female presenting to emergency Department with left knee pain. Patient states the pain happened roughly 10 days ago and [facility] evaluated, obtained an x-ray and diagnosed her with a knee sprain. Patient reports she was discharged and advised to continue wearing the Perfecto wrap or knee brace. Patient states the pain has not improved ever since and swelling has developed on the lateral aspect of the left knee. Patient reports attempting to return to [facility] but they are not able to schedule an appointment for her soon enough. Patient reports pain with weightbearing and has difficulty standing up from a sitting position. Patient denies clicking or buckling when walking. Patient states the pain does not radiate proximally or distally to the knee. Patient reports taking Aleve to control the pain. - Related Data Home Medications Medication Instructions Recorded Confirmed Ibuprofen [Motrin] 800 mg PO Q8HR PRN 10/24/13 04/21/17 Rosuvastatin Calcium [Crestor] 10 mg PO DAILY 10/24/13 04/21/17 Buckleys Cough Syrup 1 dose PO DAILY PRN 04/19/17 04/21/17 Dexlansoprazole [Dexilant] 60 mg PO Q2D 04/19/17 04/21/17 Previous Rx's Medication Instructions Recorded Acetaminophen [Tylenol] 500 mg PO Q4-6H PRN #20 tab 07/24/17 Cyclobenzaprine [Flexeril] 5 mg PO TID #12 tablet 07/24/17 predniSONE 50 mg PO DAILY #5 tablet 07/24/17 Allergies Allergy/AdvReac Type Severity Reaction Status Date / Time tramadol Allergy Itching Verified 08/03/18 16:05 Review of Systems ROS Statement: Those systems with pertinent positive or pertinent negative responses have been documented in the HPI. ROS Other: All systems not noted in ROS Statement are negative. Past Medical History Past Medical History: GERD/Reflux, Hyperlipidemia Additional Past Medical History / Comment(s): knee pain History of Any Multi-Drug Resistant Organisms: None Reported Past Surgical History: Orthopedic Surgery, Tubal Ligation Additional Past Surgical History / Comment(s): 2 right knee surgeries. uterine ablation Past Anesthesia/Blood Transfusion Reactions: Previous Problems w/ Anesthesia Additional Past Anesthesia/Blood Transfusion Reaction / Comment(s): "my body tries rejecting the tube. I needed a wedge","takes awhile to come out of anesthesia for one of my surgeries so I ended up staying the night" Past Psychological History: No Psychological Hx Reported Smoking Status: Former smoker Past Alcohol Use History: Occasional Past Drug Use History: None Reported - Past Family History Father History Unknown: Yes Mother Family Medical History: Dementia, Deep Vein Thrombosis (DVT), Hypertension Brother(s) Family Medical History: COPD, Diabetes Mellitus, Hypertension Sister(s) Family Medical History: No Reported History General Exam - General Exam Comments Initial Comments: Anterior drawer test negative. Posterior drawer test negative. Jad test negative. Limitations: no limitations General appearance: alert, in no apparent distress Head exam: Present: atraumatic, normocephalic, normal inspection Eye exam: Present: normal appearance Pupils: Present: normal accommodation Respiratory exam: Present: normal lung sounds bilaterally Cardiovascular Exam: Present: regular rate, normal rhythm, normal heart sounds Left Upper Leg exam: Present: normal inspection, full ROM Knee exam: Present: tenderness (Lateral), swelling (Local edema with no pitting). Absent: abrasion, laceration, ecchymosis, erythema Lower Leg exam: Absent: Homans' sign Gait: unable to bear weight Neurological exam: Present: alert, oriented X3 Psychiatric exam: Present: normal affect, normal mood Skin exam: Present: warm, normal color Course Vital Signs 08/03/18 16:03 Temperature 98.2 F Pulse Rate 72 Respiratory 18 Rate Blood Pressure 145/85 O2 Sat by Pulse 99 Oximetry Medical Decision Making - Medical Decision Making Patient is a 53-year-old female presents to emergency department with left knee pain. Based on physical examination I suspect the knee sprain with localized edema due to continuous weightbearing. Patient advised to alternate between Tylenol and ibuprofen for pain. Patient advised to wear a brace. Patient advised to [facility]. Patient advised to return to emergency department if symptoms worsen. Case discussed with physician. Disposition Clinical Impression: Knee pain, left Disposition: HOME SELF-CARE Condition: Stable Instructions (If sedation given, give patient instructions): Knee Sprain (ED) Additional Instructions: [facility] follow up with [facility]. Please alternate between Tylenol and ibuprofen for pain control. Please continue wearing a brace and keep her leg elevated. Please return to emergency department if symptoms worsen. Is patient prescribed a controlled substance at d/c from ED?: No Referrals: Dann Melendez MD [Primary Care Provider] - 1-2 days Wili Méndez MD [STAFF PHYSICIAN] - 1-2 days Time of Disposition: 17:18
== END 2018-08-03 17:38 | disposition home or self-care (01) ==
LOC: EC 15:45
DX: M25.562 Pain in left knee (principal); R60.0 Localized edema; E78.5 Hyperlipidemia, unspecified; K21.9 Gastro-esophageal reflux disease without esophagitis; Z87.891 Personal history of nicotine dependence; Z88.5 Allergy status to narcotic agent; Z79.1 Long term (current) use of non-steroidal anti-inflammatories (NSAID); Z79.899 Other long term (current) drug therapy; Z98.890 Other specified postprocedural states
CPT/HCPCS: 99283

== ENCOUNTER → 2018-08-16 | Outpatient (CLI) | payer BC ==
--- NOTE | 2018-08-18 10:11 | MM ---
Reason for exam: screening (asymptomatic). Last mammogram was performed 1 year ago. History: Patient is postmenopausal. Family history of premenopausal breast cancer in 2 aunts at age 40. Cancelled Left US Needle Biopsy of the left breast, January 18, 2007. Took hormonal contraceptives for 6 years beginning at age 13. Physical Findings: A clinical breast exam by your physician is recommended on an annual basis and results should be correlated with mammographic findings. MG Screening Mammo w CAD Bilateral CC and MLO view(s) were taken. Prior study comparison: August 10, 2017, bilateral MG screening mammo w CAD. March 02, 2011, bilateral digital screening mammo w/CAD. There are scattered fibroglandular densities. No significant changes when compared with prior studies. ASSESSMENT: Benign, BI-RAD 2 RECOMMENDATION: Routine screening mammogram of both breasts in 1 year.
== END ==
LOC: RADMAMWWP 16:25
PROVIDERS: ATTEND Family Medicine
DX: Z12.31 Encounter for screening mammogram for malignant neoplasm of breast (principal)
CPT/HCPCS: 77067

== ENCOUNTER 2018-08-18 09:34 | Day surgery (SDC) | payer BC ==
[2018-08-17 08:42] VITALS: BMI 32.9
[~2018-08-18 09:34] MED LIST changes: -LIDOCAINE 1% 20 ML VIAL (10MG/ML) FOR IV START INTRADERMA PRN
[2018-08-18 09:52] VITALS: RESP 16; TEMP 97
[2018-08-18] MEDS ORDERED: LIDOCAINE 1% 20 ML VIAL (10MG/ML) FOR IV START INTRADERMA ONE (09:55)
[2018-08-18] MEDS ORDERED: PROPOFOL 10 MG/ML 20 ML VIAL IV ONE (10:38)
--- NOTE | 2018-08-18 10:53 | P.PCN ---
Date of Procedure: 08/18/18 Procedure(s) Performed: BRIEF HISTORY: Patient is a 53-year-old pleasant white female, scheduled for an elective colonoscopy as a part of variation of prior history of colon polyps. Last colonoscopy was 5 years ago. PROCEDURE PERFORMED: Colonoscopy. With snare polypectomy PREOPERATIVE DIAGNOSIS: History of colon polyps. IV sedation per Anesthesia. PROCEDURE: After informed consent was obtained, the patient, was brought into the endoscopy unit. IV sedation was administered by Anesthesia under continuous monitoring. Digital rectal examination was normal. Initially the Olympus CF-160 flexible video colonoscope was then inserted in the rectum, gradually advanced into the cecum without any difficulty. Careful examination was performed as the scope was gradually being withdrawn. Ileocecal valve and the appendiceal orifice were visualized and appeared normal. Prep was excellent. Mucosa of the cecum, appeared normal. In the ascending colon there was a 5 mm sessile polyp that was removed by snare polypectomy. Rest of the ascending colon, transverse colon, descending colon, sigmoid colon, and rectum appeared normal. Retroflexion was performed in the rectum and small internal hemorrhoids were seen. The patient tolerated the procedure well. IMPRESSION: 5 mm sessile ascending colon polyp status post polypectomy Small internal hemorrhoids RECOMMENDATIONS: Findings of this examination were discussed with the patient as well as a family. She was advised to follow with the biopsy results and have a repeat surveillance colonoscopy in 5 years.
[2018-08-18 11:17] VITALS: BP 143/86; PULSE 54
== END 2018-08-18 11:45 | disposition home or self-care (01) ==
LOC: ORWHC2ENDO 09:34
PROVIDERS: ATTEND Internal Medicine Gastroenterology
DX: D12.2 Benign neoplasm of ascending colon (principal); K64.8 Other hemorrhoids; Z86.010 Personal history of colon polyps; Z88.6 Allergy status to analgesic agent; E78.5 Hyperlipidemia, unspecified; Z87.891 Personal history of nicotine dependence; K21.9 Gastro-esophageal reflux disease without esophagitis; Z79.899 Other long term (current) drug therapy
CPT/HCPCS: 88305; 45385; J2704

== ENCOUNTER 2020-04-11 06:13 | Day surgery (SDC) | payer OTHER, BC ==
[2020-04-08 15:30] VITALS: BMI 27.4
[~2020-04-11 06:13] MED LIST changes: +ACETAMINOPHEN TAB 500 MG TAB PO PRN; +HEPARIN SODIUM,PORCINE 5,000 UNIT/ML 1 ML VIAL SQ PRN; -LACTATED RINGERS 1,000 ML IV SCH; +Pre Op ABX Message 1 EACH MISC MISCELLANE ONE
[2020-04-11] MEDS ORDERED: LIDOCAINE 1% (10MG/ML) FOR IV START INTRADERMA PRN (06:33)
[2020-04-11] MEDS ORDERED: DEXAMETHASONE SOD PHOSPHATE 4 MG/ML 1 ML VIAL IV ONE (06:33)
[2020-04-11] MEDS ORDERED: LACTATED RINGERS 1,000 ML IV SCH (06:33)
[2020-04-11] MEDS ORDERED: ONDANSETRON 4 MG/2 ML VIAL IVP ONE (06:33)
[2020-04-11] MEDS ORDERED: MIDAZOLAM 2 MG/2 ML VIAL IV PRN (06:33)
[2020-04-11 06:39] VITALS: TEMP 97.6
[2020-04-11] MEDS ORDERED: LACTATED RINGERS 1,000 ML IV ONE (06:40)
[2020-04-11] MEDS ORDERED: HYDROmorphone 0.5 MG/0.5 ML SYRINGE IVP PRN (07:00)
--- NOTE | 2020-04-11 07:48 | P.GSHP ---
History of Present Illness H&P Date: 04/11/20 Chief Complaint: Right flank lipoma 34-year-old female presents with complaints of a mass in the right flank/back region. This has been increasing in size. Increasing pain lately. No prior biopsies. Past Medical History Past Medical History: GERD/Reflux Additional Past Medical History / Comment(s): knee pain, History of Any Multi-Drug Resistant Organisms: None Reported Past Surgical History: Orthopedic Surgery, Tubal Ligation Additional Past Surgical History / Comment(s): 2 right knee surgeries. uterine ablation ,COLONOSCOPIES Past Anesthesia/Blood Transfusion Reactions: Previous Problems w/ Anesthesia Additional Past Anesthesia/Blood Transfusion Reaction / Comment(s): "my body tries rejecting the tube. I needed a wedge","takes awhile to come out of anesthesia for one of my surgeries so I ended up staying the night" Smoking Status: Former smoker - Past Family History Father History Unknown: Yes Mother Family Medical History: Dementia, Deep Vein Thrombosis (DVT), Hypertension Brother(s) Family Medical History: COPD, Diabetes Mellitus, Hypertension Sister(s) Family Medical History: No Reported History Medications and Allergies Home Medications Medication Instructions Recorded Confirmed Type Acetaminophen [Tylenol Arthritis] 1,300 mg PO DAILY PRN 04/08/20 04/08/20 History Allergies Allergy/AdvReac Type Severity Reaction Status Date / Time tramadol Allergy Itching Verified 04/08/20 15:23 Surgical - Exam Vital Signs Temp Pulse Resp BP Pulse Ox 97.6 F 68 18 143/86 99 04/11/20 06:38 04/11/20 06:38 04/11/20 06:38 04/11/20 06:38 04/11/20 06:38 Physical exam: General: Well-developed, well-nourished HEENT: Normocephalic, sclerae nonicteric Abdomen: Nontender, nondistended, right flank/back with 3 x 5 cm lipomatous mass Extremities: No edema Neuro: Alert and oriented Assessment and Plan (1) Flank lipoma Narrative/Plan: We'll proceed with surgical excision flank lipoma at this time. Current Visit: Yes Status: Acute Code(s): D17.1 - BENIGN LIPOMATOUS NEOPLASM OF SKIN, SUBCU OF TRUNK SNOMED Code(s): 260978993
[2020-04-11] MEDS ORDERED: fentaNYL (PF) 50 MCG/ML 2 ML AMP ONE (07:51)
[2020-04-11] MEDS ORDERED: MIDAZOLAM 2 MG/2 ML VIAL ONE (07:51)
[2020-04-11] MEDS ORDERED: KETOROLAC 15 MG/ML 1 ML VIAL ONE (07:51)
[2020-04-11] MEDS ORDERED: PROPOFOL 10 MG/ML 20 ML VIAL IV ONE (07:51)
[2020-04-11] MEDS ORDERED: LIDOCAINE 1% INJ 10MG/ML (20 ML MDV) ONE (07:51)
[2020-04-11] MEDS ORDERED: SODIUM CHLORIDE 0.9% 50 ML with ceFAZolin 2,000 MG IV ONE ×2 (08:10)
[2020-04-11] MEDS ORDERED: BUPIVACAINE (PF) 0.25% 30 ML VIAL SQ ONE ×2 (08:13)
[2020-04-11] MEDS ORDERED: ACETAMINOPHEN TAB 325 MG TAB PO PRN (08:37)
[2020-04-11] MEDS ORDERED: NALOXONE 0.4 MG/ML 1 ML VIAL IV PRN (08:37)
--- NOTE | 2020-04-11 08:42 | P.OP ---
Date of Procedure: 04/11/20 Procedure(s) Performed: PREOPERATIVE DIAGNOSIS: Right flank lipoma POSTOPERATIVE DIAGNOSIS: Right flank subfascial lipoma 3 x 5 cm PROCEDURE: Excision right flank lipoma with intermediate closure SURGEON: Patrick EBL: 2 mL ANESTHESIA: Mac COMPLICATIONS: None OPERATIVE PROCEDURE: Patient placed in the left decubitus position. The patient was sedated. She is a time for the right flank was prepped and draped sterilely. The mass overlying the right flank was identified. The skin was localized with Marcaine. A horizontal incision was created. The subcutaneous tissues and fascia were divided using electrocautery. Lipomatous mass was subfascial in location. This was fully excised using blunt dissection and cautery. This measured 3 x 5 cm. The subcutaneous tissues were closed using 3- 0 Vicryl sutures. Skin closed using a running 4-0 Monocryl stitch. Length of incision 4.5 cm. Skin glue and sterile dressings applied. DISPOSITION: Stable to recovery room
[2020-04-11 09:10] VITALS: BP 106/66; PULSE 62; RESP 17
== END 2020-04-11 09:55 | disposition home or self-care (01) ==
LOC: OR 06:13
PROVIDERS: ATTEND Surgery
DX: D17.1 Benign lipomatous neoplasm of skin and subcutaneous tissue of trunk (principal); Z88.5 Allergy status to narcotic agent; E78.5 Hyperlipidemia, unspecified; K21.9 Gastro-esophageal reflux disease without esophagitis; Z98.51 Tubal ligation status; Z98.890 Other specified postprocedural states; Z87.891 Personal history of nicotine dependence; Z82.49 Family history of ischemic heart disease and other diseases of the circulatory system; Z83.3 Family history of diabetes mellitus; Z82.5 Family history of asthma and other chronic lower respiratory diseases; Z81.8 Family history of other mental and behavioral disorders
CPT/HCPCS: 88304; 21933; J2250; J1644; J1100; J2405; J0690; J2001; J3010; J1885; J2704

== ENCOUNTER 2021-01-05 09:59 | Emergency (ER) | payer OTHER ==
[2021-01-05 10:21] VITALS: BP 145/91; PULSE 83; RESP 20; TEMP 98.8
== END 2021-01-05 11:38 | disposition left against medical advice (07) ==
LOC: EC 09:59
DX: Z20.822 Contact with and (suspected) exposure to COVID-19 (principal); Z53.21 Procedure and treatment not carried out due to patient leaving prior to being seen by health care provider
CPT/HCPCS: 87635; 99499

== ENCOUNTER → 2021-03-13 | Outpatient (CLI) | payer OTHER ==
--- NOTE | 2021-03-16 11:45 | MM ---
Reason for exam: screening (asymptomatic). Last mammogram was performed 2 years and 7 months ago. History: Patient is postmenopausal. Family history of premenopausal breast cancer in 2 aunts at age 40. Cancelled Left US Needle Biopsy of the left breast, January 18, 2007. Took hormonal contraceptives for 6 years beginning at age 13. Physical Findings: A clinical breast exam by your physician is recommended on an annual basis and results should be correlated with mammographic findings. MG Screening Mammo w CAD Bilateral CC and MLO view(s) were taken. XCCL view(s) were taken of the left breast. Prior study comparison: August 16, 2018, bilateral MG screening mammo w CAD. August 10, 2017, bilateral MG screening mammo w CAD. There are scattered fibroglandular densities. No significant changes when compared with prior studies. ASSESSMENT: Benign, BI-RAD 2 RECOMMENDATION: Routine screening mammogram of both breasts in 1 year.
== END | disposition home or self-care (01) ==
LOC: RADMAMWWP 01-16 07:57
PROVIDERS: ATTEND Family Medicine
DX: Z12.31 Encounter for screening mammogram for malignant neoplasm of breast (principal); Z80.3 Family history of malignant neoplasm of breast; Z78.0 Asymptomatic menopausal state
CPT/HCPCS: 77067

== ENCOUNTER → 2021-05-26 | Outpatient (CLI) | payer OTHER ==
--- NOTE | 2021-05-26 14:57 | XR ---
Left foot HISTORY: Pain 3 views of left foot There is some degenerative change at the first metatarsophalangeal joint, associated soft tissue swel ling. Mild hallux valgus. No fracture or dislocation. There is a plantar calcaneal spur. Mild arthrop athy present at the intertarsal joints. IMPRESSION: Mild osteoarthritic changes and additional findings above. Plantar calcaneal spur.
== END | disposition home or self-care (01) ==
LOC: RADXRMAIN 12:15
PROVIDERS: ATTEND Family Medicine
DX: M19.072 Primary osteoarthritis, left ankle and foot (principal); M77.31 Calcaneal spur, right foot

== ENCOUNTER → 2021-07-28 | Outpatient (CLI) | payer OTHER ==
--- NOTE | 2021-07-28 08:45 | XR ---
EXAMINATION TYPE: XR foot complete RT DATE OF EXAM: 07/28/2021 COMPARISON: NONE HISTORY: Pain TECHNIQUE: Three views are submitted. FINDINGS: Hypertrophic arthropathy of the first MTP. Diffuse osteopenia. There appears to be a hairline minimal ly displaced fracture of the middle phalanx fourth digit.. Large plantar calcaneal spur IMPRESSION: 1. Hairline minimally displaced fracture middle phalanx fourth digit. 2. Large plantar calcaneal spur.
== END | disposition home or self-care (01) ==
LOC: RADXRMAIN 06:49
PROVIDERS: ATTEND Family Medicine
DX: S92.521A Displaced fracture of middle phalanx of right lesser toe(s), initial encounter for closed fracture (principal); M77.31 Calcaneal spur, right foot; X58.XXXA Exposure to other specified factors, initial encounter

== ENCOUNTER → 2021-08-01 | Outpatient (CLI) | payer OTHER ==
--- NOTE | 2021-08-01 15:52 | MR ---
EXAMINATION TYPE: MR lumbar spine wo con DATE OF EXAM: 08/01/2021 COMPARISON: None HISTORY: Back pain into left buttocks and leg Multiplanar multiecho imaging of the lumbar spine without contrast. Normal alignment. Disc spaces are fairly normal for age. There is no compression fracture. No lumbar disc herniation. There is developmentally large spinal canal. No spinal stenosis. The neural foramina are fairly well maintained. There is no lumbar paraspinal mass. Sacroiliac joints are intact. IMPRESSION: Lumbar spine appears fairly normal for age. Minimal posterior disc bulging present from L3 to S1.
== END | disposition home or self-care (01) ==
LOC: RADMRIMAIN 10:19
PROVIDERS: ATTEND Physical Medicine & Rehabilitation
DX: M51.27 Other intervertebral disc displacement, lumbosacral region (principal)
CPT/HCPCS: 72148

== ENCOUNTER → 2022-03-25 | Outpatient (CLI) | payer OTHER ==
--- NOTE | 2022-03-26 08:31 | MM ---
Reason for Exam: Screening (asymptomatic). Last mammogram was performed 1 year(s) and 1 month(s) ago. Patient History: Menarche at age 12. First Full-Term at age 20. Postmenopausal. Hormonal Contraceptives for 6 years from age 13 until age 19. 01/18/2007, Cancelled Left US Needle Biopsy on the left side. Maternal aunt had breast cancer, age 40. Risk Values: Laurie 5 year model risk: 1.1%. NCI Lifetime model risk: 6.3%. Prior Study Comparison: 08/10/2017 Bilateral Screening Mammogram, [facility]. 08/16/2018 Bilateral Screening Mammogram, [facility]. 03/13/2021 Bilateral Screening Mammogram, [facility]. Tissue Density: There are scattered fibroglandular densities. Findings: Analyzed By CAD. There is no suspicious group of microcalcifications in either breast. No new suspicious mass within the right breast. Focal asymmetry within the upper outer left breast at anterior to middle depth. Overall Assessment: Incomplete: need additional imaging evaluation, BI-RAD 0 Management: Diagnostic Mammogram of the left breast. A clinical breast exam by your physician is recommended on an annual basis and results should be correlated with mammographic findings. [facility] will attempt to contact patient to return for supplemental views and ultrasound if indicated. Electronically signed and approved by: Link Olvera D.O.
== END | disposition home or self-care (01) ==
LOC: RADMAMWWP 07:13
PROVIDERS: ATTEND Family Medicine
DX: Z12.31 Encounter for screening mammogram for malignant neoplasm of breast (principal); Z78.0 Asymptomatic menopausal state; Z80.3 Family history of malignant neoplasm of breast; Z98.890 Other specified postprocedural states
CPT/HCPCS: 77063; 77067

== ENCOUNTER → 2022-03-31 | Outpatient (CLI) | payer OTHER ==
--- NOTE | 2022-03-31 08:47 | MM ---
Reason for Exam: Additional evaluation requested from abnormal screening. Last screening mammogram was performed less than 1 month ago. Patient History: Menarche at age 12. First Full-Term at age 20. Postmenopausal. Hormonal Contraceptives for 6 years from age 13 until age 19. 01/18/2007, Cancelled Left US Needle Biopsy on the left side. Maternal aunt had breast cancer, age 40. Risk Values: Laurie 5 year model risk: 1.1%. NCI Lifetime model risk: 6.3%. Prior Study Comparison: 08/16/2018 Bilateral Screening Mammogram, [facility]. 03/13/2021 Bilateral Screening Mammogram, [facility]. 03/25/2022 Bilateral MG 3D screening mammo w/cad, [facility]. Tissue Density: Left: There are scattered fibroglandular densities. Findings: Analyzed By CAD. Area of concern correlates with overlying tissues. Lesion completely disappears on compression imaging. No evidence for suspicious masses, calcifications or distortions. Overall Assessment: Benign, BI-RAD 2 Management: Screening Mammogram of both breasts in 1 year. A clinical breast exam by your physician is recommended on an annual basis and results should be correlated with mammographic findings. This exam should not preclude additional follow-up of suspicious palpable abnormalities. Results were given to the patient verbally at the time of exam. Electronically signed and approved by: Ajit Cook DO
== END | disposition home or self-care (01) ==
LOC: RADMAMWWP 08:14
PROVIDERS: ATTEND Family Medicine
DX: R92.8 Other abnormal and inconclusive findings on diagnostic imaging of breast (principal); Z78.0 Asymptomatic menopausal state; Z80.3 Family history of malignant neoplasm of breast
CPT/HCPCS: 77061; 77065

== ENCOUNTER 2022-12-06 23:24 | Emergency (ER) | payer OTHER ==
[2022-12-06 23:31] VITALS: TEMP 101.4
[2022-12-07] MEDS ORDERED: KETOROLAC 15 MG/ML 1 ML VIAL IM STA (00:04)
--- NOTE | 2022-12-07 00:06 | ED ---
General Adult HPI - General Chief complaint: Upper Respiratory Infection Stated complaint: bodyaches Time Seen by Provider: 12/06/22 23:32 Source: patient Mode of arrival: ambulatory Limitations: no limitations - History of Present Illness Initial comments: This is a 57-year-old female with no past medical history presents emergency department for fevers, chills and body aches. The patient stated this is been ongoing since this morning and she stated that she only took Tylenol earlier today and she had minimal relief. The patient did state that she is out, working in the public often did not know if anybody specifically was sick. The patient denied any nausea and vomiting but did state that she had a headache. The patient denied any other acute pain or complaints at this time. - Related Data Home Medications Medication Instructions Recorded Confirmed Acetaminophen [Tylenol Arthritis] 1,300 mg PO DAILY PRN 04/08/20 04/08/20 Previous Rx's Medication Instructions Recorded Acetaminophen-Codeine 300-30mg 1 tab PO Q4H PRN 3 Days #6 tablet 04/11/20 [Tylenol w/codeine #3] Allergies Allergy/AdvReac Type Severity Reaction Status Date / Time tramadol Allergy Itching Verified 12/06/22 23:29 Review of Systems ROS Statement: Those systems with pertinent positive or pertinent negative responses have been documented in the HPI. ROS Other: All systems not noted in ROS Statement are negative. Past Medical History Past Medical History: GERD/Reflux Additional Past Medical History / Comment(s): knee pain, History of Any Multi-Drug Resistant Organisms: None Reported Past Surgical History: Orthopedic Surgery, Tubal Ligation Additional Past Surgical History / Comment(s): 2 right knee surgeries. uterine ablation ,COLONOSCOPIES Past Anesthesia/Blood Transfusion Reactions: Previous Problems w/ Anesthesia Additional Past Anesthesia/Blood Transfusion Reaction / Comment(s): "my body tries rejecting the tube. I needed a wedge","takes awhile to come out of anesthesia for one of my surgeries so I ended up staying the night" Past Psychological History: No Psychological Hx Reported Smoking Status: Former smoker Past Alcohol Use History: Occasional Past Drug Use History: None Reported - Past Family History Father History Unknown: Yes Mother Family Medical History: Dementia, Deep Vein Thrombosis (DVT), Hypertension Brother(s) Family Medical History: COPD, Diabetes Mellitus, Hypertension Sister(s) Family Medical History: No Reported History General Exam Limitations: no limitations General appearance: alert, in no apparent distress Head exam: Present: atraumatic, normocephalic, normal inspection Eye exam: Present: normal appearance, PERRL Pupils: Present: normal accommodation ENT exam: Present: normal exam, normal oropharynx, mucous membranes moist Neck exam: Present: normal inspection, full ROM Respiratory exam: Present: normal lung sounds bilaterally. Absent: respiratory distress, wheezes Cardiovascular Exam: Present: normal rhythm, tachycardia, normal heart sounds GI/Abdominal exam: Present: soft, normal bowel sounds Extremities exam: Present: normal inspection, full ROM Back exam: Present: normal inspection, full ROM Neurological exam: Present: alert, oriented X3, CN II-XII intact Psychiatric exam: Present: normal affect, normal mood Skin exam: Present: warm, dry Course Vital Signs 12/06/22 23:26 Temperature 101.4 F H Pulse Rate 118 H Respiratory 20 Rate Blood Pressure 158/85 O2 Sat by Pulse 96 Oximetry Medical Decision Making - Medical Decision Making Was pt. sent in by a medical professional or institution (Dr. PA, CYBER SOFTWARE ENGINEER, urgent care, hospital, or alf...) When possible be specific @ -No Did you speak to anyone other than the patient for history (EMS, parent, family, police, friend...)? What history was obtained from this source @ -No Did you review nursing and triage notes (agree or disagree)? Why? @ -I reviewed and agree with nursing and triage notes Were old charts reviewed (outside hosp., previous admission, EMS record, old EKG, old radiological studies, urgent care reports/EKG's, alf records)? Report findings @ -No old charts were reviewed Differential Diagnosis (chest pain, altered mental status, abdominal pain women, abdominal pain men, vaginal bleeding, weakness, fever, dyspnea, syncope, headache, dizziness, GI bleed, back pain, seizure, CVA, palpatations, mental health)? @ -URI, pneumonia, sepsis EKG interpreted by me (3pts min.). @ -None X-rays interpreted by me (1pt min.). @ -Chest x-ray was obtained and was interpreted by myself showing no acute process or infiltrate. CT interpreted by me (1pt min.). @ -None done U/S interpreted by me (1pt. min.). @ -None done What testing was considered but not performed or refused? (CT, X-rays, U/S, labs)? Why? @ -None What meds were considered but not given or refused? Why? @ -None Did you discuss the management of the patient with other professionals (professionals i.e. , PA, CYBER SOFTWARE ENGINEER, lab, RT, psych nurse, social worker aide, chef's assistant, teacher, staff nuclear weapons officer, case technician)? Give summary @ -No Was smoking cessation discussed for >3mins.? @ -No Was critical care preformed (if so, how long)? @ -No Were there social determinants of health that impacted care today? How? (Homelessness, low income, unemployed, alcoholism, drug addiction, transportation, low edu. Level, literacy, decrease access to med. care, detention, rehab)? @ -No Was there de-escalation of care discussed even if they declined (Discuss DNR or withdrawal of care, Hospice)? DNR status @ -No What co-morbidities impacted this encounter? (DM, HTN, Smoking, COPD, CAD, Cancer, CVA, ARF, Chemo, Hep., AIDS, mental health diagnosis, sleep apnea, morbid obesity)? @ -None Was patient admitted / discharged? Hospital course, mention meds given and route, prescriptions, significant lab abnormalities, going to OR and other pertinent info. @ -Patient was seen and evaluated emergency department. Physical exam, the patient was resting in bed without any acute distress. Vital signs admission showed the patient to be febrile and tachycardic however the patient was not any acute distress. Due to the patient's symptoms and complaints, a chest x-ray and swabs for COVID-19, influenza and RSV were obtained. The patient did receive 30 mg of Toradol IM. The patient was COVID-19 positive. The patient was given 1 L of normal saline fluid and Toradol as the patient did not want an IM injection. The patient was otherwise stable and was stable for discharge home. The patient was advised to quarantine per CDC protocol. The patient was also advised report back to the emergency department if she had worsening shortness of breath or difficulty in breathing. The patient was agreeable to this and all her questions were answered. The patient was discharged home in stable condition. Undiagnosed new problem with uncertain prognosis? @ -No Drug Therapy requiring intensive monitoring for toxicity (Heparin, Nitro, Insulin, Cardizem)? @ -No Were any procedures done? @ -No Diagnosis/symptom? @ -Covid 19 Acute, or Chronic, or Acute on Chronic? @ -Acute Uncomplicated (without systemic symptoms) or Complicated (systemic symptoms)? @ -Uncomplicated Side effects of treatment? @ -No Exacerbation, Progression, or Severe Exacerbation? @ -No Poses a threat to life or bodily function? How? (Chest pain, USA, ND, pneumonia, PE, COPD, DKA, ARF, appy, cholecystitis, CVA, Diverticulitis, Homicidal, Suicidal, threat to staff... and all critical care pts) @ -No - Lab Data Lab Results 12/06/22 Range/Units 23:30 Influenza Type A (PCR) Not Detected (Not Detectd) Influenza Type B (PCR) Not Detected (Not Detectd) RSV (PCR) Not Detected (Not Detectd) SARS-CoV-2 (PCR) Detected A (Not Detectd) Disposition Clinical Impression: COVID-19 Disposition: HOME SELF-CARE Condition: Stable Instructions (If sedation given, give patient instructions): COVID-19 (Coronavirus Disease 2019) (ED) Is patient prescribed a controlled substance at d/c from ED?: No Referrals: Dann Melendez MD [Primary Care Provider] - 1-2 days Time of Disposition: 00:20
[2022-12-07] MEDS ORDERED: SODIUM CHLORIDE 0.9% 1,000 ML IV ONE (00:17)
--- NOTE | 2022-12-07 00:35 | XR ---
EXAM: XR Chest, 2 Views CLINICAL HISTORY: ITS.REASON XR Reason: cough TECHNIQUE: Frontal and lateral views of the chest. COMPARISON: No relevant prior studies available. FINDINGS: Lungs: Unremarkable. No consolidation. Pleural space: Unremarkable. No pneumothorax. Heart: Unremarkable. No cardiomegaly. Mediastinum: Unremarkable. Bones/joints: Unremarkable. IMPRESSION: Normal chest x-rays.
[2022-12-07 01:07] VITALS: BP 152/86; PULSE 84; RESP 18
== END 2022-12-07 01:07 | disposition home or self-care (01) ==
LOC: EC 23:24
DX: U07.1 COVID-19 (principal); Z87.891 Personal history of nicotine dependence; Z88.5 Allergy status to narcotic agent
CPT/HCPCS: 87636; 71046; 99284; 96360; 96372; J1885

== ENCOUNTER 2023-02-26 17:12 | Emergency (ER) | payer OTHER ==
--- NOTE | 2023-02-26 17:49 | ED ---
General Adult HPI - General Source: RN notes reviewed <Dolores Mayfield - Last Filed: 02/26/23 17:48> - General Source: patient, RN notes reviewed, old records reviewed <Neel Ac - Last Filed: 02/26/23 23:03> - General Stated complaint: fever,vomiting Time Seen by Provider: 02/26/23 17:48 - History of Present Illness Initial comments: 57-year-old -[place] female significant past medical history presents the emergency department with a chief complaint of fever. Patient reports fever, body aches and headache and 1 episode of vomiting that started earlier this afternoon while she was bending event. (Dolores Mayfield) Patient is a 57-year-old female with past medical history remarkable for acid reflux, presents emergency Department complaining of fever, sore throat, body ac hes, nausea and vomiting. No known sick contacts. Also has mild cough. Also endorses sore throat. No other acute complaints at this time. Symptoms of been ongoing for one day. Since or further evaluation at this time. And one episode of emesis that was nonbilious and nonbloody. Patient originally evaluated as a quick note. (Neel Ac) - Related Data Home Medications Medication Instructions Recorded Confirmed Acetaminophen [Tylenol Arthritis] 1,300 mg PO DAILY PRN 04/08/20 04/08/20 Previous Rx's Medication Instructions Recorded Acetaminophen-Codeine 300-30mg 1 tab PO Q4H PRN 3 Days #6 tablet 04/11/20 [Tylenol w/codeine #3] Azithromycin [Zithromax] 250 mg PO DAILY 4 Days #4 tab 02/26/23 Allergies Allergy/AdvReac Type Severity Reaction Status Date / Time shellfish derived [Shellfish] Allergy Rash/Hives Verified 02/26/23 17:49 tramadol Allergy Itching Verified 02/26/23 17:49 Review of Systems ROS Other: All systems not noted in ROS Statement are negative. <Dolores Mayfield - Last Filed: 02/26/23 17:48> ROS Other: All systems not noted in ROS Statement are negative. <Neel Ac - Last Filed: 02/26/23 23:03> ROS Statement: Those systems with pertinent positive or pertinent negative responses have been documented in the HPI. Review of Systems: CONST: Endorses fever EYES: Denies blurry vision ENT: Denies nasal congestion C/V: Denies Chest pain RESP: Denies shortness of breath GI: Denies abdominal pain : Denies dysuria SKIN: Denies rash. MSK: Denies joint pain. NEURO: Denies headache (Neel Ac) Past Medical History Past Medical History: GERD/Reflux Additional Past Medical History / Comment(s): knee pain, History of Any Multi-Drug Resistant Organisms: None Reported Past Surgical History: Orthopedic Surgery, Tubal Ligation Additional Past Surgical History / Comment(s): 2 right knee surgeries. uterine ablation ,COLONOSCOPIES Past Anesthesia/Blood Transfusion Reactions: Previous Problems w/ Anesthesia Additional Past Anesthesia/Blood Transfusion Reaction / Comment(s): "my body tries rejecting the tube. I needed a wedge","takes awhile to come out of anesthesia for one of my surgeries so I ended up staying the night" Past Psychological History: No Psychological Hx Reported Smoking Status: Former smoker Past Alcohol Use History: Occasional Past Drug Use History: None Reported - Past Family History Father History Unknown: Yes Mother Family Medical History: Dementia, Deep Vein Thrombosis (DVT), Hypertension Brother(s) Family Medical History: COPD, Diabetes Mellitus, Hypertension Sister(s) Family Medical History: No Reported History <Dolores Mayfield - Last Filed: 02/26/23 17:48> General Exam <Dolores Mayfield - Last Filed: 02/26/23 17:48> <Neel Ac - Last Filed: 02/26/23 23:03> - General Exam Comments Initial Comments: Visual Physical Exam Vital signs reviewed General: Well-appearing, nontoxic, no acute distress. Head: Normocephalic, atraumatic Eyes: PERRLA, EOMI ENT: Airway patent Chest: Nonlabored breathing Skin: No visual rash, normal skin tone Neuro: Alert and oriented 3 Musculoskeletal: No gross abnormalities (Dolores Mayfield) General: Appears in mild acute distress. febrile HEAD: Normal with no signs of head trauma. EYES: PERRLA, EOMI, conjunctiva normal, no discharge. ENT: Hearing grossly intact. Posterior oropharynx shows mild erythema but no obvious exudates. RESPIRATORY: Clear breath sounds bilaterally. No wheezes, rales, or rhonchi. C/V: Tachycardic. S1 and S2 auscultated, no edema, peripheral pulses 2+ and intact throughout ABD: Abd is soft, nontender, nondistended EXT: Normal range of motion, no obvious deformity SKIN: No rashes or lesions observed on exposed skin. NEURO: Alert and oriented x 4. (Neel Ac) Course Vital Signs 02/26/23 02/26/23 17:49 21:42 Temperature 103.0 F H 102.5 F H Pulse Rate 123 H 118 H Respiratory 20 18 Rate Blood Pressure 117/59 138/73 O2 Sat by Pulse 98 Oximetry Medical Decision Making <Dolores Mayfield - Last Filed: 02/26/23 17:48> - Lab Data Result diagrams: 02/26/23 20:25 02/26/23 20:25 <Neel Ac - Last Filed: 02/26/23 23:03> - Medical Decision Making I performed the quick note portion of this exam, verbal signature Dolores Mayfield PA-C (Dolores Mayfield) Was pt. sent in by a medical professional or institution (DIANA Harris, ROTOPRINTER, urgent care, hospital, or shelter...) When possible be specific @ -No Did you speak to anyone other than the patient for history (EMS, parent, family, police, friend...)? What history was obtained from this source @ -No Did you review nursing and triage notes (agree or disagree)? Why? @ -I reviewed and agree with nursing and triage notes Were old charts reviewed (outside hosp., previous admission, EMS record, old EKG, old radiological studies, urgent care reports/EKG's, shelter records)? Report findings @ -No old charts were reviewed Differential Diagnosis (chest pain, altered mental status, abdominal pain women, abdominal pain men, vaginal bleeding, weakness, fever, dyspnea, syncope, headache, dizziness, GI bleed, back pain, seizure, CVA, palpatations, mental health, musculoskeletal)? @ -Differential Fever: Pneumonia, viral URI, endocarditis, myocarditis, pericarditis, otitis, sinusitis, peritonsillar Abscess, retropharyngeal Abscess, epiglottitis, peritonitis, appendicitis, Deepa cystitis, diverticulitis, hepatitis, colitis, UTI, PID, TOA, pyelonephritis, prostatitis, epididymitis, meningitis, encephalit is, pulmonary embolism, CVA, thyroid storm, pancreatitis, adrenal crisis, cavernous sinus thrombosis, this is not meant to be an all-inclusive list. EKG interpreted by me (3pts min.). @ -none done X-rays interpreted by me (1pt min.). @ -Chest X-ray reveals no focal infiltrates. CT interpreted by me (1pt min.). @ -None done U/S interpreted by me (1pt. min.). @ -None done What testing was considered but not performed or refused? (CT, X-rays, U/S, labs)? Why? @ -None What meds were considered but not given or refused? Why? @ -None Did you discuss the management of the patient with other professionals (professionals i.e. , PA, ROTOPRINTER, lab, RT, psych nurse, social media specialist, wheel inspector, teacher, parking regulation enforcement officer, case work aide)? Give summary @ -No Was smoking cessation discussed for >3mins.? @ -No Was critical care preformed (if so, how long)? @ -No Were there social determinants of health that impacted care today? How? (H omelessness, low income, unemployed, alcoholism, drug addiction, transportation, low edu. Level, literacy, decrease access to med. care, fdc, rehab)? @ -No Was there de-escalation of care discussed even if they declined (Discuss DNR or withdrawal of care, Hospice)? DNR status @ -No What co-morbidities impacted this encounter? (DM, HTN, Smoking, COPD, CAD, Cancer, CVA, ARF, Chemo, Hep., AIDS, mental health diagnosis, sleep apnea, morbid obesity)? @ -None Was patient admitted / discharged? Hospital course, mention meds given and route, prescriptions, significant lab abnormalities, going to OR and other pertinent info. @ -Based on patient's presentation and physical exam, presents with a febrile illness. Workup started in triage. Patient's viral swabs remarkable for negative flu, RSV, Covid, strep. We will obtain basic labs, chest x-ray, and provide antipyretics and 1 L fluid bolus. Patient agreement this plan. Vital signs are remarkable for the fever remarkable for mild tachycardia likely secondary to the fever. Chest x-ray shows nonspecific findings. No focal consolidation. Patient's labs are marked will for slight leukocytosis of 12.9. Remainder of the labs within acceptable limits. Fevers improved following antipyretics. Patient is feeling improved. We discussed her workup. She'll be empirically placed on azithromycin for tracheobronchitis and patient will be discharged home with strict return precautions. Discussed hydration. Discussed antipyretics. She was in agreement this plan. I instructed the patient to follow up with their PCP in the next 1-3 days. I explained that the patient should return to the emergency department if they experience any worsening symptoms. Strict return precautions were discussed with the patient. The patient expressed understanding of these instructions. I answered all questions that the patient had. The patient was discharged home in good condition with their prescriptions and follow up information. Undiagnosed new problem with uncertain prognosis? @ -No Drug Therapy requiring intensive monitoring for toxicity (Heparin, Nitro, Insulin, Cardizem)? @ -No Were any procedures done? @ -No Diagnosis/symptom? @ -Febrile illness, tracheobronchitis, viral syndrome Acute, or Chronic, or Acute on Chronic? @ -Acute Uncomplicated (without systemic symptoms) or Complicated (systemic symptoms)? @ -Complicated Side effects of treatment? @ -No Exacerbation, Progression, or Severe Exacerbation? @ -No Poses a threat to life or bodily function? How? (Chest pain, USA, MS, pneumonia, PE, COPD, DKA, ARF, appy, cholecystitis, CVA, Diverticulitis, Homicidal, S uicidal, threat to staff... and all critical care pts) @ -Unlikely (Neel Ac) - Lab Data Lab Results 02/26/23 02/26/23 02/26/23 Range/Units 17:52 17:52 20:25 WBC 12.9 H (3.8-10.6) k/uL RBC 4.75 (3.80-5.40) m/uL Hgb 13.4 (11.4-16.0) gm/dL Hct 41.3 (34.0-46.0) % MCV 87.0 (80.0-100.0) fL MCH 28.2 (25.0-35.0) pg MCHC 32.4 (31.0-37.0) g/dL RDW 14.2 (11.5-15.5) % Plt Count 322 (150-450) k/uL MPV 6.9 Neutrophils % 91 % Lymphocytes % 5 % Monocytes % 2 % Eosinophils % 1 % Basophils % 0 % Neutrophils # 11.7 H (1.3-7.7) k/uL Lymphocytes # 0.6 L (1.0-4.8) k/uL Monocytes # 0.3 (0-1.0) k/uL Eosinophils # 0.1 (0-0.7) k/uL Basophils # 0.0 (0-0.2) k/uL Sodium (137-145) mmol/L Potassium (3.5-5.1) mmol/L Chloride (98-107) mmol/L Carbon Dioxide (22-30) mmol/L Anion Gap mmol/L BUN (7-17) mg/dL Creatinine (0.52-1.04) mg/dL Est GFR (CKD-EPI)AfAm (>60 ml/min/1.73 sqM) Est GFR (CKD-EPI)NonAf (>60 ml/min/1.73 sqM) Glucose (74-99) mg/dL Calcium (8.4-10.2) mg/dL Total Bilirubin (0.2-1.3) mg/dL AST (14-36) U/L ALT (4-34) U/L Alkaline Phosphatase (38-126) U/L Total Protein (6.3-8.2) g/dL Albumin (3.5-5.0) g/dL Urine Color Urine Appearance (Clear) Urine pH (5.0-8.0) Ur Specific Platinum (1.001-1.035) Urine Protein (Negative) Urine Glucose (UA) (Negative) Urine Ketones (Negative) Urine Blood (Negative) Urine Nitrite (Negative) Urine Bilirubin (Negative) Urine Urobilinogen (<2.0) mg/dL Ur Leukocyte Esterase (Negative) Influenza Type A (PCR) Not Detected (Not Detectd) Influenza Type B (PCR) Not Detected (Not Detectd) RSV (PCR) Not Detected (Not Detectd) SARS-CoV-2 (PCR) Not Detected (Not Detectd) Group A Strep (PCR) NOT DETECTED (Not Detectd) 02/26/23 02/26/23 Range/Units 20:25 20:25 WBC (3.8-10.6) k/uL RBC (3.80-5.40) m/uL Hgb (11.4-16.0) gm/dL Hct (34.0-46.0) % MCV (80.0-100.0) fL MCH (25.0-35.0) pg MCHC (31.0-37.0) g/dL RDW (11.5-15.5) % Plt Count (150-450) k/uL MPV Neutrophils % % Lymphocytes % % Monocytes % % Eosinophils % % Basophils % % Neutrophils # (1.3-7.7) k/uL Lymphocytes # (1.0-4.8) k/uL Monocytes # (0-1.0) k/uL Eosinophils # (0-0.7) k/uL Basophils # (0-0.2) k/uL Sodium 138 (137-145) mmol/L Potassium 4.8 (3.5-5.1) mmol/L Chloride 104 (98-107) mmol/L Carbon Dioxide 23 (22-30) mmol/L Anion Gap 11 mmol/L BUN 17 (7-17) mg/dL Creatinine 0.66 (0.52-1.04) mg/dL Est GFR (CKD-EPI)AfAm >90 (>60 ml/min/1.73 sqM) Est GFR (CKD-EPI)NonAf >90 (>60 ml/min/1.73 sqM) Glucose 139 H (74-99) mg/dL Calcium 9.5 (8.4-10.2) mg/dL Total Bilirubin 0.7 (0.2-1.3) mg/dL AST 33 (14-36) U/L ALT 31 (4-34) U/L Alkaline Phosphatase 113 (38-126) U/L Total Protein 8.1 (6.3-8.2) g/dL Albumin 4.6 (3.5-5.0) g/dL Urine Color Yellow Urine Appearance Clear (Clear) Urine pH 8.0 (5.0-8.0) Ur Specific Platinum 1.010 (1.001-1.035) Urine Protein Negative (Negative) Urine Glucose (UA) Negative (Negative) Urine Ketones Negative (Negative) Urine Blood Negative (Negative) Urine Nitrite Negative (Negative) Urine Bilirubin Negative (Negative) Urine Urobilinogen <2.0 (<2.0) mg/dL Ur Leukocyte Esterase Negative (Negative) Influenza Type A (PCR) (Not Detectd) Influenza Type B (PCR) (Not Detectd) RSV (PCR) (Not Detectd) SARS-CoV-2 (PCR) (Not Detectd) Group A Strep (PCR) (Not Detectd) Disposition <Dolores Mayfield - Last Filed: 02/26/23 17:48> Is patient prescribed a controlled substance at d/c from ED?: No Time of Disposition: 22:36 <Neel Ac - Last Filed: 02/26/23 23:03> Clinical Impression: Viral syndrome, Tracheobronchitis, Febrile illness Disposition: HOME SELF-CARE Condition: Good Instructions (If sedation given, give patient instructions): Upper Respiratory Infection (ED) Prescriptions: Azithromycin [Zithromax] 250 mg PO DAILY 4 Days #4 tab Referrals: Dnan Melendez MD [Primary Care Provider] - 1-2 days
[2023-02-26] MEDS ORDERED: ACETAMINOPHEN TAB 500 MG TAB PO STA (19:51)
[2023-02-26] MEDS ORDERED: IBUPROFEN 800 MG TAB PO STA (19:52)
[2023-02-26] MEDS ORDERED: SODIUM CHLORIDE 0.9% 1,000 ML IV STA (20:12)
[2023-02-26] MEDS ORDERED: ONDANSETRON 4 MG/2 ML VIAL IVP STA (20:12)
[2023-02-26 20:33] LABS: Basophils % (A) 0 %; Eosinophils # (A) 0.1 k/uL (0-0.7); Eosinophils % (A) 1 %; HCT 41.3 % (34.0-46.0); HGB 13.4 gm/dL (11.4-16.0); Lymphocytes # (A) 0.6 k/uL (1.0-4.8); Lymphocytes % (A) 5 %; MCH 28.2 pg (25.0-35.0); MCHC 32.4 g/dL (31.0-37.0); Mean Platelet Volume 6.9; Monocytes # (A) 0.3 k/uL (0-1.0); Monocytes % (A) 2 %; Neutrophils # (A) 11.7 k/uL (1.3-7.7); Neutrophils % (A) 91 %; Platelet Count 322 k/uL (150-450); RBC 4.75 m/uL (3.80-5.40); RDW 14.2 % (11.5-15.5); WBC 12.9 k/uL (3.8-10.6)
[2023-02-26 20:46] LABS: ALT 31 U/L (4-34); AST 33 U/L (14-36); African American GFR (CKD) >90 (>60 ml/min/1.73 sqM); Albumin 4.6 g/dL (3.5-5.0); Alkaline Phosphatase 113 U/L (38-126); Anion Gap 11 mmol/L; Blood Urea Nitrogen 17 mg/dL (7-17); Calcium 9.5 mg/dL (8.4-10.2); Carbon Dioxide 23 mmol/L (22-30); Chloride 104 mmol/L (98-107); Glucose 139 mg/dL (74-99); Non-African American GFR(CKD) >90 (>60 ml/min/1.73 sqM); Sodium 138 mmol/L (137-145); Total Bilirubin 0.7 mg/dL (0.2-1.3); Total Protein 8.1 g/dL (6.3-8.2)
[2023-02-26 21:11] LABS: Potassium 4.8 mmol/L (3.5-5.1)
[2023-02-26 21:55] LABS: Appearance,Urine Clear (Clear); Bilirubin,Urine Negative (Negative); Blood,Urine Negative (Negative); Color,Urine Yellow; Glucose,Urine (UA) Negative (Negative); Ketones,Urine Negative (Negative); Leukocyte Esterase,Urine Negative (Negative); Nitrite,Urine Negative (Negative); Protein,Urine Negative (Negative); Urobilinogen,Urine <2.0 mg/dL (<2.0)
[2023-02-26 22:03] VITALS: RESP 18
[2023-02-26] MEDS ORDERED: AZITHROMYCIN 500 MG TAB PO STA (22:43)
[2023-02-26] MEDS ORDERED: ONDANSETRON 4 MG ODT STARTER PACK 2 TAB BTL PO STA (22:44)
[2023-02-26 23:34] VITALS: BP 138/78; PULSE 92; TEMP 100.4
--- NOTE | 2023-02-26 23:57 | XR ---
EXAMINATION TYPE: XR chest 2V DATE OF EXAM: 02/26/2023 8:37 PM CLINICAL INDICATION:Female, 57 years old with history of fever; LOCATED WITHIN [facility] COMPARISON: 12/06/2022 TECHNIQUE: XR chest 2V. Frontal PA and lateral views of the chest. FINDINGS: Lines/Tubes: Extrinsic densities are present. No indwelling lines are seen. Heart/mediastinum: Cardiomediastinal silhouette is well defined. Heart appears mildly enlarged. Mil d tortuosity and partial calcification of the aorta. Pulmonary vascularity: Not increased, Lungs/Pleura: There is no evidence of pleural effusion, focal consolidation, or pneumothorax. Musculoskeletal: No acute osseous abnormality demonstrated in the limits of the exam. Multilevel mil d degenerative disc disease changes seen throughout the spine. Other findings: None. IMPRESSION: No acute cardiopulmonary abnormality, and no significant interval change.
== END 2023-02-26 23:26 | disposition home or self-care (01) ==
LOC: EC 17:12
DX: B34.9 Viral infection, unspecified (principal); J40 Bronchitis, not specified as acute or chronic; Z87.891 Personal history of nicotine dependence; Z20.822 Contact with and (suspected) exposure to COVID-19; Z91.013 Allergy to seafood; Z88.5 Allergy status to narcotic agent
CPT/HCPCS: 99284; 96374; 96361; 36415; 87651; 80053; 85025; 81003; 87636; 71046; J2405; S0119

== ENCOUNTER 2023-05-08 21:26 | Emergency (ER) | payer OTHER ==
--- NOTE | 2023-05-08 22:05 | ED ---
Headache HPI - General Chief Complaint: Headache Stated Complaint: left side headache left shoulder pain Time Seen by Provider: 05/08/23 22:05 Mode of arrival: ambulatory Limitations: no limitations - History of Present Illness Initial Comments: Promise is a healthy 57-year-old female who presents to the ER today for evaluation of headache. Patient reports that headache began behind her left eye and radiates through her left temporal region. She feels like the pain radiates down her neck. She has had no vision changes, no trouble speaking or swallowing no focal neurologic deficits. Patient reports she has had mild headaches in the past but nothing serious. Patient denies any recent head trauma. She denies any fevers chills nausea or vomiting. She does feel slightly photophobic but not phonophobic. Took some OTC meds prior to arrival with no improvement. - Related Data Home Medications Medication Instructions Recorded Confirmed Acetaminophen [Tylenol Arthritis] 1,300 mg PO DAILY PRN 04/08/20 04/08/20 Previous Rx's Medication Instructions Recorded Acetaminophen-Codeine 300-30mg 1 tab PO Q4H PRN 3 Days #6 tablet 04/11/20 [Tylenol w/codeine #3] Azithromycin [Zithromax] 250 mg PO DAILY 4 Days #4 tab 02/26/23 Allergies Allergy/AdvReac Type Severity Reaction Status Date / Time shellfish derived [Shellfish] Allergy Rash/Hives Verified 05/08/23 21:35 tramadol Allergy Itching Verified 05/08/23 21:35 Review of Systems ROS Statement: Those systems with pertinent positive or pertinent negative responses have been documented in the HPI. ROS Other: All systems not noted in ROS Statement are negative. Constitutional: Denies: fever Eyes: Denies: eye discharge, vision change ENT: Denies: ear pain, dental pain Neurological: Reports: headache. Denies: weakness, numbness, paresthesias, confusion, abnormal gait, vertigo Past Medical History Past Medical History: GERD/Reflux Additional Past Medical History / Comment(s): knee pain, History of Any Multi-Drug Resistant Organisms: None Reported Past Surgical History: Orthopedic Surgery, Tubal Ligation Additional Past Surgical History / Comment(s): 2 right knee surgeries. uterine ablation ,COLONOSCOPIES Past Anesthesia/Blood Transfusion Reactions: Previous Problems w/ Anesthesia Additional Past Anesthesia/Blood Transfusion Reaction / Comment(s): "my body tries rejecting the tube. I needed a wedge","takes awhile to come out of anest hesia for one of my surgeries so I ended up staying the night" Past Psychological History: No Psychological Hx Reported Smoking Status: Former smoker Past Alcohol Use History: Occasional Past Drug Use History: None Reported - Past Family History Father History Unknown: Yes Mother Family Medical History: Dementia, Deep Vein Thrombosis (DVT), Hypertension Brother(s) Family Medical History: COPD, Diabetes Mellitus, Hypertension Sister(s) Family Medical History: No Reported History General Exam Limitations: no limitations General appearance: alert, other (Resting in bed with blanket over her head but smiles appropriately to interaction) Eye exam: Present: PERRL, EOMI. Absent: conjunctival injection, periorbital swelling, periorbital tenderness Pupils: Present: normal accommodation. Absent: irregular, unequal, miosis, mydriatic ENT exam: Present: normal exam Neck exam: Present: full ROM. Absent: tenderness, meningismus, lymphadenopathy Respiratory exam: Absent: respiratory distress Cardiovascular Exam: Present: regular rate GI/Abdominal exam: Present: soft. Absent: distended Rectal exam: Present: deferred Neurological exam: Present: alert, oriented X3, CN II-XII intact Psychiatric exam: Present: normal affect, normal mood Course Vital Signs 05/08/23 05/08/23 21:33 22:15 Temperature 97.7 F Pulse Rate 74 80 Respiratory 20 18 Rate Blood Pressure 161/106 142/74 O2 Sat by Pulse 99 100 Oximetry Medical Decision Making - Medical Decision Making Was pt. sent in by a medical professional or institution (, PA, COMPUTER EQUIPMENT REPAIRER, urgent care, hospital, or shelter...) When possible be specific @ -No Did you speak to anyone other than the patient for history (EMS, parent, family, police, friend...)? What history was obtained from this source @ - at bedside Did you review nursing and triage notes (agree or disagree)? Why? @ -I reviewed and agree with nursing and triage notes Were old charts reviewed (outside hosp., previous admission, EMS record, old EKG, old radiological studies, urgent care reports/EKG's, shelter records)? Report findings @ -No old charts were reviewed Differential Diagnosis (chest pain, altered mental status, abdominal pain women, abdominal pain men, vaginal bleeding, weakness, fever, dyspnea, syncope, headache, dizziness, GI bleed, back pain, seizure, CVA, palpatations, mental health)? @ -Differential Headache: Migraine, tension, cluster, carbon monoxide, central venous thrombosis, pension karma temporal arteritis, acute closure glaucoma, intercranial hemorrhage, mastoiditis, sinusitis, head injury, this is not meant to be an all-inclusive list. EKG interpreted by me (3pts min.). @ -As above X-rays interpreted by me (1pt min.). @ -None done CT interpreted by me (1pt min.). @ -No mass or bleed U/S interpreted by me (1pt. min.). @ -None done What testing was considered but not performed or refused? (CT, X-rays, U/S, labs)? Why? @ -None What meds were considered but not given or refused? Why? @ -None Did you discuss the management of the patient with other professionals (professionals i.e. , PA, COMPUTER EQUIPMENT REPAIRER, lab, RT, psych nurse, director of social services, certifier, teacher, animal control officer, outsole caser)? Give summary @ -No Was smoking cessation discussed for >3mins.? @ -No Was critical care preformed (if so, how long)? @ -No Were there social determinants of health that impacted care today? How? (Homelessness, low income, unemployed, alcoholism, drug addiction, transportation, low edu. Level, literacy, decrease access to med. care, senior care, rehab)? @ -No Was there de-escalation of care discussed even if they declined (Discuss DNR or withdrawal of care, Hospice)? DNR status @ -No What co-morbidities impacted this encounter? (DM, HTN, Smoking, COPD, CAD, Cancer, CVA, ARF, Chemo, Hep., AIDS, mental health diagnosis, sleep apnea, morbid obesity)? @ -None Was patient admitted / discharged? Hospital course, mention meds given and route, prescriptions, significant lab abnormalities, going to OR and other pertinent info. @ -Discharged The patient was seen and evaluated history was obtained from the patient. Patient with headache that seems to be more left-sided she does have some tearing of the left eye and on exam was sniffling and did note that this was new as well. Discussed with her my concern that she may be having a cluster headache and she was placed on oxygen however head CT and labs were obtained. Upon reevaluation patient did report some improvement after being on the oxygen she was resting slightly more comfortably, a migraine cocktail was given. CT scan resulted with no acute findings. Upon reevaluation patient was sleeping comfortably, she woke easily to gentle verbal stimulation and reported feeling much better headache had resolved and she is comfortable plan for discharge home. Results were discussed with patient and at bedside and patient was discharged in stable condition. Undiagnosed new problem with uncertain prognosis? @ -No Drug Therapy requiring intensive monitoring for toxicity (Heparin, Nitro, Insulin, Cardizem)? @ -No Were any procedures done? @ -No Diagnosis/symptom? @ -Headache Acute, or Chronic, or Acute on Chronic? @ -Acute Uncomplicated (without systemic symptoms) or Complicated (systemic symptoms)? @ -Uncomplicated Side effects of treatment? @ -No Exacerbation, Progression, or Severe Exacerbation? @ -No Poses a threat to life or bodily function? How? (Chest pain, [place], [place], pneumonia, PE, COPD, DKA, ARF, appy, cholecystitis, CVA, Diverticulitis, Homicidal, Suicidal, threat to staff... and all critical care pts) @ -Unlikely - Lab Data Result diagrams: 05/08/23 22:50 05/08/23 22:50 Lab Results 05/08/23 05/08/23 05/08/23 Range/Units 22:50 22:50 22:50 WBC 7.3 (3.8-10.6) k/uL RBC 4.45 (3.80-5.40) m/uL Hgb 12.7 (11.4-16.0) gm/dL Hct 38.9 (34.0-46.0) % MCV 87.3 (80.0-100.0) fL MCH 28.5 (25.0-35.0) pg MCHC 32.6 (31.0-37.0) g/dL RDW 14.7 (11.5-15.5) % Plt Count 338 (150-450) k/uL MPV 7.5 Neutrophils % 41 % Lymphocytes % 50 % Monocytes % 5 % Eosinophils % 1 % Basophils % 0 % Neutrophils # 3.0 (1.3-7.7) k/uL Lymphocytes # 3.7 (1.0-4.8) k/uL Monocytes # 0.4 (0-1.0) k/uL Eosinophils # 0.1 (0-0.7) k/uL Basophils # 0.0 (0-0.2) k/uL PT 11.3 (10.0-12.5) sec INR 1.0 (<1.2) APTT 30.2 H (22.0-30.0) sec Sodium 141 (137-145) mmol/L Potassium 3.7 (3.5-5.1) mmol/L Chloride 110 H (98-107) mmol/L Carbon Dioxide 23 (22-30) mmol/L Anion Gap 8 mmol/L BUN 22 H (7-17) mg/dL Creatinine 0.62 (0.52-1.04) mg/dL Est GFR (CKD-EPI)AfAm >90 (>60 ml/min/1.73 sqM) Est GFR (CKD-EPI)NonAf >90 (>60 ml/min/1.73 sqM) Glucose 126 H (74-99) mg/dL Calcium 9.4 (8.4-10.2) mg/dL Total Bilirubin 0.3 (0.2-1.3) mg/dL AST 27 (14-36) U/L ALT 33 (4-34) U/L Alkaline Phosphatase 152 H (38-126) U/L Total Protein 7.2 (6.3-8.2) g/dL Albumin 4.1 (3.5-5.0) g/dL Disposition Clinical Impression: Headache Disposition: HOME SELF-CARE Condition: Stable Instructions (If sedation given, give patient instructions): Acute Headache (ED) Is patient prescribed a controlled substance at d/c from ED?: No Referrals: Dann Melendez MD [Primary Care Provider] - 1-2 days
--- NOTE | 2023-05-08 22:40 | CT ---
EXAM: CT Head Without Intravenous Contrast CLINICAL HISTORY: ITS.REASON CT Reason: headache TECHNIQUE: Axial computed tomography images of the head/brain without intravenous contrast. CTDI is 49.1 mGy and DLP is 1136.4 mGy-cm. This CT exam was performed using one or more of the following dose reduction techniques: automated exposure control, adjustment of the mA and/or kV according to patient size, and/or use of iterative reconstruction technique. COMPARISON: No relevant prior studies available. FINDINGS: No acute intracranial hemorrhage. No midline shift or mass effect. The territorial petty-white matter differentiation is maintained throughout. The ventricles and sulci are commensurate with age. The visualized orbits appear grossly unremarkable. The calvarium is intact. The visualized paranasal sinuses and mastoid air cells are grossly clear. IMPRESSION: No acute intracranial hemorrhage, midline shift, or mass effect.
[2023-05-08] MEDS: SODIUM CHLORIDE 0.9% 1,000 ML IV STA (22:50)
[2023-05-08 23:00] LABS: Basophils % (A) 0 %; Eosinophils # (A) 0.1 k/uL (0-0.7); Eosinophils % (A) 1 %; HCT 38.9 % (34.0-46.0); HGB 12.7 gm/dL (11.4-16.0); Lymphocytes # (A) 3.7 k/uL (1.0-4.8); Lymphocytes % (A) 50 %; MCH 28.5 pg (25.0-35.0); MCHC 32.6 g/dL (31.0-37.0); MCV 87.3 fL (80.0-100.0); Mean Platelet Volume 7.5; Monocytes # (A) 0.4 k/uL (0-1.0); Monocytes % (A) 5 %; Neutrophils % (A) 41 %; Platelet Count 338 k/uL (150-450); RBC 4.45 m/uL (3.80-5.40); RDW 14.7 % (11.5-15.5); WBC 7.3 k/uL (3.8-10.6)
[2023-05-08 23:11] LABS: Partial Thromboplastin Time 30.2 sec (22.0-30.0); Prothrombin Time 11.3 sec (10.0-12.5)
[2023-05-08] MEDS: KETOROLAC 15 MG/ML 1 ML VIAL IVP STA (23:11)
[2023-05-08] MEDS: diphenhydrAMINE 50 MG/ML 1 ML VIAL IVP STA (23:12)
[2023-05-08] MEDS: DEXAMETHASONE SOD PHOSPHATE 10 MG/ML 1 ML VIAL IVP STA (23:12)
[2023-05-08 23:34] LABS: ALT 33 U/L (4-34); AST 27 U/L (14-36); African American GFR (CKD) >90 (>60 ml/min/1.73 sqM); Albumin 4.1 g/dL (3.5-5.0); Alkaline Phosphatase 152 U/L (38-126); Anion Gap 8 mmol/L; Blood Urea Nitrogen 22 mg/dL (7-17); Calcium 9.4 mg/dL (8.4-10.2); Carbon Dioxide 23 mmol/L (22-30); Chloride 110 mmol/L (98-107); Glucose 126 mg/dL (74-99); Non-African American GFR(CKD) >90 (>60 ml/min/1.73 sqM); Potassium 3.7 mmol/L (3.5-5.1); Sodium 141 mmol/L (137-145); Total Bilirubin 0.3 mg/dL (0.2-1.3); Total Protein 7.2 g/dL (6.3-8.2)
[2023-05-09 01:10] VITALS: BP 144/80; PULSE 78; RESP 16; TEMP 98.5
== END 2023-05-09 00:50 | disposition home or self-care (01) ==
LOC: EC 21:26
DX: R51.9 Headache, unspecified (principal); Z88.5 Allergy status to narcotic agent; Z91.013 Allergy to seafood; Z87.891 Personal history of nicotine dependence
CPT/HCPCS: 36415; 80053; 85025; 85610; 85730; 70450; 99284; 96374; 96375 ×2; 96361 ×2; J1200; J1100; J1885

== ENCOUNTER → 2023-05-25 | Outpatient (CLI) | payer OTHER ==
--- NOTE | 2023-05-26 10:15 | MM ---
Reason for Exam: Screening (asymptomatic). Last mammogram was performed 1 year(s) and 2 month(s) ago. Patient History: Menarche at age 12. First Full-Term at age 20. Postmenopausal. Hormonal Contraceptives for 6 years from age 13 until age 19. 01/18/2007, Cancelled Left US Needle Biopsy on the left side. Maternal aunt had breast cancer, age 40. Risk Values: Laurie 5 year model risk: 1.1%. NCI Lifetime model risk: 5.5%. Prior Study Comparison: 03/13/2021 Bilateral Screening Mammogram, [facility]. 03/25/2022 Bilateral MG 3D screening mammo w/cad, [facility]. 03/31/2022 Left MG 3D work up w/cad , [facility]. Tissue Density: The breasts are almost entirely fatty. Findings: Analyzed By CAD. There is no suspicious group of microcalcifications or new suspicious mass in either breast. Overall Assessment: Negative, BI-RAD 1 Management: Screening Mammogram of both breasts in 1 year. . Patient should continue monthly self-breast exams. A clinical breast exam by your physician is recommended on an annual basis. This exam should not preclude additional follow-up of suspicious palpable abnormalities. Note on Laurie scores and lifetime risk: 1. A Laurie score greater than 3% is considered moderate risk. If this is the case, consider specialist referral to assess eligibility for a risk reducing agent. 2. If overall lifetime risk for the development of breast cancer is 20% or higher, the patient may qualify for future screening with alternating mammogram and breast MRI. Electronically signed and approved by: Rafael Hadley M.D. Radiologis
== END | disposition home or self-care (01) ==
LOC: RADMAMWWP 07:23
PROVIDERS: ATTEND Family Medicine
DX: Z12.31 Encounter for screening mammogram for malignant neoplasm of breast (principal); Z78.0 Asymptomatic menopausal state; Z80.3 Family history of malignant neoplasm of breast
CPT/HCPCS: 77063; 77067

== ENCOUNTER 2023-12-24 07:22 | Emergency (ER) | payer OTHER ==
--- NOTE | 2023-12-24 07:37 | ED ---
General Adult HPI - General Chief complaint: Upper Respiratory Infection Stated complaint: throat pain Time Seen by Provider: 12/24/23 07:24 Source: patient, RN notes reviewed, old records reviewed Mode of arrival: ambulatory - History of Present Illness Initial comments: 58-year-old female presenting with a 1 day history of of congestion, left-sided facial pain and sore throat. No fever. No cough. No dyspnea. No chest pain. No headache. - Related Data Home Medications Medication Instructions Recorded Confirmed Acetaminophen [Tylenol Arthritis] 1,300 mg PO DAILY PRN 04/08/20 04/08/20 Previous Rx's Medication Instructions Recorded Acetaminophen-Codeine 300-30mg 1 tab PO Q4H PRN 3 Days #6 tablet 04/11/20 [Tylenol w/codeine #3] Azithromycin [Zithromax] 250 mg PO DAILY 4 Days #4 tab 02/26/23 Allergies Allergy/AdvReac Type Severity Reaction Status Date / Time shellfish derived [Shellfish] Allergy Rash/Hives Verified 12/24/23 07:26 tramadol Allergy Itching Verified 12/24/23 07:26 Review of Systems ROS Statement: Those systems with pertinent positive or pertinent negative responses have been documented in the HPI. ROS Other: All systems not noted in ROS Statement are negative. Past Medical History Past Medical History: GERD/Reflux Additional Past Medical History / Comment(s): knee pain, History of Any Multi-Drug Resistant Organisms: None Reported Past Surgical History: Orthopedic Surgery, Tubal Ligation Additional Past Surgical History / Comment(s): 2 right knee surgeries. uterine ablation ,COLONOSCOPIES Past Anesthesia/Blood Transfusion Reactions: Previous Problems w/ Anesthesia Additional Past Anesthesia/Blood Transfusion Reaction / Comment(s): "my body tries rejecting the tube. I needed a wedge","takes awhile to come out of anesthesia for one of my surgeries so I ended up staying the night" Past Psychological History: No Psychological Hx Reported Smoking Status: Former smoker Past Alcohol Use History: Occasional Past Drug Use History: None Reported - Past Family History Father History Unknown: Yes Mother Family Medical History: Dementia, Deep Vein Thrombosis (DVT), Hypertension Brother(s) Family Medical History: COPD, Diabetes Mellitus, Hypertension Sister(s) Family Medical History: No Reported History General Exam General appearance: alert, in no apparent distress Head exam: Present: atraumatic, normocephalic Eye exam: Present: normal appearance, PERRL ENT exam: Present: normal oropharynx, mucous membranes moist. Absent: TM's normal bilaterally (Left tympanic membrane is within normal limits) Neck exam: Present: normal inspection. Absent: tenderness, meningismus Respiratory exam: Present: normal lung sounds bilaterally. Absent: respiratory distress, wheezes, rales Cardiovascular Exam: Present: regular rate, normal rhythm GI/Abdominal exam: Present: soft. Absent: distended, tenderness, guarding, rebound Neurological exam: Present: alert, oriented X3 Psychiatric exam: Present: normal affect, normal mood Skin exam: Present: warm, dry, intact, normal color Course Vital Signs 12/24/23 07:23 Temperature 97.9 F Pulse Rate 73 Respiratory 18 Rate Blood Pressure 149/89 O2 Sat by Pulse 100 Oximetry Medical Decision Making - Medical Decision Making Was pt. sent in by a medical professional or institution (, DIANA, MOVIE PRODUCER, urgent care, hospital, or prison...) When possible be specific @ -No Did you speak to anyone other than the patient for history (EMS, parent, family, police, friend...)? What history was obtained from this source @ -No Did you review nursing and triage notes (agree or disagree)? Why? @ -I reviewed and agree with nursing and triage notes Were old charts reviewed (outside hosp., previous admission, EMS record, old EKG, old radiological studies, urgent care reports/EKG's, prison records)? Report findings @ -No old charts were reviewed Differential Diagnosiest: Upper respiratory infection, sinusitis, coronavirus, otitis media, strep pharyngitis EKG interpreted by me (3pts min.). @ -As above X-rays interpreted by me (1pt min.). @ -None done CT interpreted by me (1pt min.). @ -None done U/S interpreted by me (1pt. min.). @ -None done What testing was considered but not performed or refused? (CT, X-rays, U/S, labs)? Why? @ -None What meds were considered but not given or refused? Why? @ -None Did you discuss the management of the patient with other professionals (professionals i.e. , DIANA, MOVIE PRODUCER, lab, RT, psych nurse, social work case manager, rental sales agent, teacher, commissary officer, case briefer)? Give summary @ -No Was smoking cessation discussed for >3mins.? @ -No Was critical care preformed (if so, how long)? @ -No Were there social determinants of health that impacted care today? How? (Homelessness, low income, unemployed, alcoholism, drug addiction, transportation, low edu. Level, literacy, decrease access to med. care, senior care, rehab)? @ -No Was there de-escalation of care discussed even if they declined (Discuss DNR or withdrawal of care, Hospice)? DNR status @ -No What co-morbidities impacted this encounter? (DM, HTN, Smoking, COPD, CAD, Cancer, CVA, ARF, Chemo, Hep., AIDS, mental health diagnosis, sleep apnea, morbid obesity)? @ -None Was patient admitted / discharged? Hospital course, mention meds given and route, prescriptions, significant lab abnormalities, going to OR and other pertinent info. @ -58-year-old female with mild upper respiratory symptoms, nasal congestion, left-sided facial pain. Symptoms present for 24 hours. No fever. Vital signs stable. Undiagnosed new problem with uncertain prognosis? @ -No Drug Therapy requiring intensive monitoring for toxicity (Heparin, Nitro, Insulin, Cardizem)? @ -No Were any procedures done? @ -No Diagnosis/symptom? @ -[Upper respiratory infection Acute, or Chronic, or Acute on Chronic? @ -Acute Uncomplicated (without systemic symptoms) or Complicated (systemic symptoms)? @ -Default Side effects of treatment? @ -No Exacerbation, Progression, or Severe Exacerbation? @ -No Poses a threat to life or bodily function? How? (Chest pain, USA, CT, pneumonia, PE, COPD, DKA, ARF, appy, cholecystitis, CVA, Diverticulitis, Homicidal, Suicidal, threat to staff... and all critical care pts) @ -No Disposition Clinical Impression: Acute upper respiratory infection Disposition: HOME SELF-CARE Condition: Good Instructions (If sedation given, give patient instructions): Upper Respiratory Infection (ED) Is patient prescribed a controlled substance at d/c from ED?: No Referrals: Dann Melendez MD [Primary Care Provider] - 1-2 days Time of Disposition: 07:36
[2023-12-24 07:41] VITALS: RESP 16
[2023-12-24 07:51] VITALS: BP 144/82; PULSE 71; TEMP 98
== END 2023-12-24 07:50 | disposition home or self-care (01) ==
LOC: EC 07:22
CPT/HCPCS: 87636; 99283

== ENCOUNTER → 2024-04-13 | Outpatient (CLI) | payer OTHER ==
--- NOTE | 2024-04-13 08:13 | US ---
EXAMINATION TYPE: US pelvic complete DATE OF EXAM: 04/13/2024 COMPARISON: NONE CLINICAL INDICATION: Female, 58 years old with history of R10.31 RT LOWER QUAD PAIN; pain TECHNIQUE: Transvaginal (TV) and Transabdominal (TA) . Doppler imaging: Not performed. FINDINGS: EXAM MEASUREMENTS: Uterus: 7.5 x 2.3 x 3.7 cm Endometrial Stripe: .3 cm 1. Uterus: Anteverted Nabothian cyst and cervix. A posterior partially exophytic Fibroid right tracie marilyn measuring .9 x .8 x 1.1 cm. 2. Endometrium: wnl 3. Right Ovary: Obscured by overlying bowel gas 4. Left Ovary: Obscured by overlying bowel gas 5. Bilateral Adnexa: wnl 6. Posterior cul-de-sac: wnl Urinary bladder is sonolucent. IMPRESSION: 1. Small uterine fibroid [facility], , 04/13/2024 8:10 AM
--- NOTE | 2024-04-13 08:39 | US ---
EXAMINATION TYPE: US abdomen complete DATE OF EXAM: 04/13/2024 COMPARISON: NONE CLINICAL INDICATION: Female, 58 years old with history of R10.31 RT LOWER QUAD PAIN; pain TECHNIQUE: Grayscale and color Doppler imaging of the abdomen was performed. FINDINGS: EXAM MEASUREMENTS: Liver Length: 18.1 cm Gallbladder Wall: .2 cm CBD: .6 cm, color Doppler imaging was utilized to isolate the common bile duct for measurement. Spleen: 9.9 cm Right Kidney: 10 x 4.9 x 4.8 cm Left Kidney: 10 x 4.9 x 5.2 cm COMMUNITY HEALTH AGENT NOTES: Pancreas: Tail obscured by overlying bowel gas Liver: Increased attenuation compatible with mild fatty infiltration. Anechoic area seen left lobe 0 .7 x 0.6 x 0.8cm. May be a small subcentimeter cyst . Gallbladder: No stones seen Evidence for sonographic Becerra's sign: no CBD: wnl Spleen: wnl Right Kidney: wnl, No hydronephrosis, calculi or masses seen Left Kidney: wnl, No hydronephrosis, calculi or masses seen Upper IVC: wnl Abd Aorta: wnl IMPRESSION: 1. Mild fatty infiltration of the enlarged liver. Small cyst is present within the liver. [facility], , 04/13/2024 8:37 AM
== END | disposition home or self-care (01) ==
LOC: RADUSWWP 06:36
PROVIDERS: ATTEND Family Medicine
DX: D25.9 Leiomyoma of uterus, unspecified (principal); R16.0 Hepatomegaly, not elsewhere classified; R10.31 Right lower quadrant pain; K76.89 Other specified diseases of liver
CPT/HCPCS: 76700; 76856